=== PATIENT | female | born 1955 | race Caucasian/White ===

== ENCOUNTER 2018-07-24 23:55 | Observation (INO) | payer MEDICAID ==
--- NOTE | 2018-07-25 00:20 | ED PDOC ---
Arrival/HPI - General Chief Complaint: Syncope Time Seen by Provider: 07/24/18 23:56 Historian: Patient, Spouse - History of Present Illness Narrative History of Present Illness (Text): 07/25/18 00:13 63 year old female, whose past medical history includes Hypertension, Diabetes, and Hypercholesterolemia, presents to the emergency department s/p syncopal episode. Patient reports she went to the kitchen after having a bowel movement where her said she found her on the floor. Patient reports she does not recall what happened. The patient reports headache, but denies any fever, chills, chest pain, shortness of breath, abdominal pain, nausea, vomiting, diarrhea, urinary symptoms, back pain, neck pain, dizziness, or any other complaints. PMD: Cal Pfeiffer Time/Duration: Prior to Arrival Symptom Onset: Sudden Symptom Course: Resolved Activities at Onset: Light Context: Home Past Medical History - Provider Review Nursing Documentation Reviewed: Yes - Infectious Disease Hx of Infectious Diseases: None - Reproductive Menopause: Yes - Cardiac Hx Hypertension: Yes - Endocrine/Metabolic Hx Diabetes Mellitus Type 1: Yes - Psychiatric Hx Substance Use: No - Surgical History Hx Cholecystectomy: Yes Hx Orthopedic Surgery: Yes (left shoulder rotator cuff) Other/Comment: Cyst on left breast removed - Anesthesia Hx Anesthesia: Yes Family/Social History - Physician Review Nursing Documentation Reviewed: Yes Family/Social History: No Known Family HX Smoking Status: Never Smoked Hx Alcohol Use: No Hx Substance Use: No Allergies/Home Meds Allergies/Adverse Reactions: Allergies Penicillins Adverse Reaction (Verified 07/25/18 00:14) FEVER Home Medications: Home Meds Medication Instructions Recorded Confirmed Losartan [Cozaar] 100 mg PO DAILY 07/25/18 07/25/18 MetFORMIN [glucOPHAGE] 1,000 mg PO BID 07/25/18 07/25/18 Pravastatin Sodium [Pravachol] 40 mg PO 07/25/18 SITagliptin [Januvia] 100 mg PO DAILY 07/25/18 07/25/18 amLODIPine [Norvasc] 10 mg PO DAILY 07/25/18 07/25/18 Review of Systems - Physician Review All systems were reviewed & negative as marked: Yes - Review of Systems Constitutional: absent: Fevers, Other (Chills) Respiratory: absent: SOB Cardiovascular: Syncope. absent: Chest Pain Gastrointestinal: absent: Abdominal Pain, Diarrhea, Nausea Genitourinary Female: absent: Dysuria, Frequency, Hematuria Musculoskeletal: absent: Back Pain, Neck Pain Neurological: Headache. absent: Dizziness Physical Exam Vital Signs Reviewed: Yes Vital Signs Temp Pulse Resp BP Pulse Ox 07/25/18 00:08 98.3 F 62 18 115/65 97 Temperature: Afebrile Blood Pressure: Normal Pulse: Regular Respiratory Rate: Normal Appearance: Positive for: Well-Appearing, Non-Toxic, Comfortable Pain Distress: None Mental Status: Positive for: Alert and Oriented X 3 - Systems Exam Head: Present: Atraumatic, Normocephalic Pupils: Present: PERRL Extroacular Muscles: Present: EOMI Conjunctiva: Present: Normal Mouth: Present: Moist Mucous Membranes Neck: Present: Normal Range of Motion Respiratory/Chest: Present: Clear to Auscultation, Good Air Exchange. No: Respiratory Distress, Accessory Muscle Use Cardiovascular: Present: Regular Rate and Rhythm, Normal S1, S2. No: Murmurs Abdomen: No: Tenderness, Distention, Peritoneal Signs Back: Present: Normal Inspection Upper Extremity: Present: Normal Inspection. No: Cyanosis, Edema Lower Extremity: Present: Normal Inspection. No: Edema Neurological: Present: GCS=15, CN II-XII Intact, Speech Normal Skin: Present: Warm, Dry, Normal Color. No: Rashes Psychiatric: Present: Alert, Oriented x 3, Normal Insight, Normal Concentration Medical Decision Making ED Course and Treatment: 07/25/18 00:14 Impression: 63 year old female presents s/p syncopal episode after having a bowel movement. Patient also reports headache earlier. Plan: -- CT head -- EKG -- Labs -- CXR -- IV Fluids -- Reassess and disposition Progress Notes: 07/25/18 00:02 EKG shows NSR at 62 BPM. Normal EKG. Interpreted by me 07/25/18 02:03 Labs reviewed. D-Dimer elevated. Ordered CT Angio Chest PE Protocol. CT SCAN OF THE BRAIN WITHOUT IV CONTRAST Electronically signed on Jul 25, 2018 2:50:47 AM EST by: Helga Castro M.D IMPRESSION: Normal unenhanced CT scan of the brain. 07/25/18 02:15 CXR Impression: As read by KIAH sosa. CTA OF THE CHEST WITH IV CONTRAST Electronically signed on Jul 25, 2018 4:07:30 AM EST by: Helga Castro M.D IMPRESSION: No demonstrated pulmonary embolism or arterial dissection. 07/25/18 04:38 Case discussed with biomedical engineering technologist and Dr. Alejandra who is aware and agrees with plan. Accepts patient into hospitalist service. - Lab Interpretations I have reviewed the lab results: Yes - EKG Interpretation Interpreted by ED Physician: Yes Type: 12 lead EKG - Scribe Statement The provider has reviewed the documentation as recorded by the Eusebio Joy Provider Scribe Attestation: All medical record entries made by the Eusebio were at my direction and personally dictated by me. I have reviewed the chart and agree that the record accurately reflects my personal performance of the history, physical exam, medic al decision making, and the department course for this patient. I have also personally directed, reviewed, and agree with the discharge instructions and disposition. Disposition/Present on Arrival - Present on Arrival Any Indicators Present on Arrival: No History of DVT/PE: No History of Uncontrolled Diabetes: Yes Urinary Catheter: No History of Decub. Ulcer: No History Surgical Site Infection Following: None - Disposition Have Diagnosis and Disposition been Completed?: Yes Diagnosis: Syncope Disposition: HOSPITALIZED Disposition Time: 04:25 Condition: FAIR
[2018-07-25] MEDS: Sodium Chloride 0.9% 1,000 ML IV SCH ×2 (00:43→20:26)
[2018-07-25 00:46] LABS: BASO # 0.01 K/mm3 (0.0-2.0); BASO % 0.1 % (0.0-3.0); EOS # 0.3 (0.0-0.7); EOS % 2.7 % (1.5-5.0); GRAN # 6.08 (1.4-6.5); GRAN % 57.1 % (50.0-68.0); LYMPH # 3.5 (1.2-3.4); LYMPH % 32.6 % (22.0-35.0); MEAN CELL VOLUME 87.4 fl (80.0-105.0); MEAN CORPUSCULAR HEMOGLOBIN 29.1 pg (25.0-35.0); MEAN CORPUSCULAR HGB CONC 33.3 g/dl (31.0-37.0); MEAN PLATELET VOLUME 9.5 fl (7.0-11.0); MONO # 0.8 (0.1-0.6); MONO % 7.5 % (1.0-6.0); RBC 4.12 10^6/uL (3.5-6.1); RED CELL DISTRIBUTION WIDTH 13.2 % (11.5-14.5); WHITE BLOOD COUNT 10.7 10^3/uL (4.5-11.0)
[2018-07-25 02:11] LABS: BLOOD UREA NITROGEN 13 mg/dL (7-21); GFR NON-AFRICAN AMERICAN > 60
[2018-07-25 02:12] LABS: ALB/GLOB RATIO 1.4 (1.1-1.8); ALBUMIN 3.9 g/dL (3.0-4.8); ALT/SGPT 18 U/L (7-56); AST/SGOT 24 U/L (14-36); CALCIUM 9.4 mg/dL (8.4-10.5); TROPONIN I < 0.01 ng/mL
[2018-07-25] MEDS ORDERED: Iodixanol 320 MG/ML 100 ML BOTTLE IV ONE (02:31)
--- NOTE | 2018-07-25 05:23 | CP.PCM.HP ---
<Srinivasa Orantes - Last Filed: 07/25/18 06:06> History of Present Illness - History of Present Illness History of Present Illness: Srinivasa Orantes DO, PGY-1 Hospitalist Admission History and Physical for Dr. Alejandra CC: syncope HPI: Mrs. Washington is a 63 year old female with PMH of HTN, DM2, and HLD who presents to ED following a syncopal episode yesterday evening about 10 hours ago. She states that she was sitting on the toilet in the bathroom when she began to feel light-headed and felt very sweaty. The next thing she remembers is waking up on the floor. She is unsure exactly how long she was down as her was asleep at the time. She called out to her who came and found her on the floor. EMS was subsequently called. She admits to feeling similar episodes of dizziness/light-headedness in the past with associated diaphoresis but that she has not passed out before like last night. She does not recall whether these episodes are associated with prolonged standing, emotional distress, or other inciting factors. She states that she has felt light-headed in the past while sitting and while standing but lying down helps to relieve the feelings. Currently, she states she feels better and denies PARR, blurred vision, dizziness, fever/chills, CP, SOB, cough, palpitations, leg/arm weakness, seizure, or peripheral numbness/tingling. PMD: Cal Pfeiffer Past Medical Hx: HTN, DM2, HLD Past Surgical Hx: R shoulder rotator cuff repair, cholecystectomy, L ovarian cyst removal, R breast cyst removal Allergies: PCN Home medications: Losartan 100 mg daily, norvasc 10 daily, metformin 1000 BID, Januvia 100 daily, pravastatin (unknown dose, need to call pharmacy in AM to confirm dosage) Family Hx: Mother and father both had HTN and DM2 Social Hx: denies tobacco, alcohol, drug use. 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 Pharmacy: [facility] [address] [place] [id number] Present on Admission - Present on Admission Any Indicators Present on Admission: No History of DVT/PE: No History of Uncontrolled Diabetes: No Urinary Catheter: No Decubitus Ulcer Present: No Review of Systems - Constitutional Constitutional: absent: Chills, Fever - EENT Eyes: absent: Blurred Vision, Dry Eye - Cardiovascular Cardiovascular: Diaphoresis. absent: Chest Pain, Chest Pain with Activity, Claudication, Dyspnea, Palpitations, Rapid Heart Rate - Respiratory Respiratory: absent: Cough, Dyspnea - Gastrointestinal Gastrointestinal: absent: Abdominal Pain, Nausea, Vomiting - Genitourinary Genitourinary: absent: Change in Urinary Stream, Difficulty Urinating Past Patient History - Infectious Disease Hx of Infectious Diseases: None - Past Social History Smoking Status: Never Smoked - CARDIAC Hx Hypertension: Yes - ENDOCRINE/METABOLIC Hx Diabetes Mellitus Type 1: Yes - PSYCHIATRIC Hx Substance Use: No - SURGICAL HISTORY Hx Cholecystectomy: Yes Hx Orthopedic Surgery: Yes (left shoulder rotator cuff) Other/Comment: Cyst on left breast removed - ANESTHESIA Hx Anesthesia: Yes Meds Allergies/Adverse Reactions: Allergies Allergy/AdvReac Type Severity Reaction Status Date / Time Penicillins AdvReac FEVER Verified 07/25/18 00:14 Physical Exam - Constitutional Appears: Non-toxic, No Acute Distress - Head Exam Head Exam: ATRAUMATIC, NORMOCEPHALIC - Eye Exam Eye Exam: EOMI, Normal appearance, PERRL - ENT Exam ENT Exam: Mucous Membranes Moist - Neck Exam Neck exam: Positive for: Full Rom, Normal Inspection - Respiratory Exam Respiratory Exam: Clear to Auscultation Bilateral, NORMAL BREATHING PATTERN. absent: Accessory Muscle Use, Rales, Rhonchi, Wheezes, Respiratory Distress - Cardiovascular Exam Cardiovascular Exam: REGULAR RHYTHM, RRR, +S1, +S2. absent: Diastolic murmur, Gallop, Rubs, Systolic Murmur - GI/Abdominal Exam GI & Abdominal Exam: Normal Bowel Sounds, Soft. absent: Guarding, Rebound, Tenderness - Extremities Exam Extremities exam: Positive for: normal inspection, pedal pulses present. Negative for: pedal edema - Back Exam Back exam: NORMAL INSPECTION. absent: paraspinal tenderness - Neurological Exam Neurological exam: Alert, Oriented x3 - Psychiatric Exam Psychiatric exam: Normal Affect, Normal Mood - Skin Skin Exam: Dry, Intact, Warm Results - Vital Signs Recent Vital Signs: Last Vital Signs Temp 98.3 F 07/25/18 00:08 Pulse 72 07/25/18 01:44 Resp 18 07/25/18 01:44 BP 126/68 07/25/18 01:44 Pulse Ox 96 07/25/18 01:44 - Labs Result Diagrams: 07/25/18 00:25 07/25/18 01:30 Labs: Laboratory Results - last 24 hr 07/25/18 07/25/18 07/25/18 00:25 01:30 01:30 WBC 10.7 RBC 4.12 Hgb 12.0 Hct 36.0 MCV 87.4 MCH 29.1 MCHC 33.3 RDW 13.2 Plt Count 313 MPV 9.5 Gran % 57.1 Lymph % (Auto) 32.6 [place] % (Auto) 7.5 H Eos % (Auto) 2.7 Baso % (Auto) 0.1 Gran # 6.08 Lymph # (Auto) 3.5 H [place] # (Auto) 0.8 H Eos # (Auto) 0.3 Baso # (Auto) 0.01 D-Dimer, Quantitative 323 H Sodium 138 Potassium 3.6 Chloride 103 Carbon Dioxide 26 Anion Gap 13 BUN 13 Creatinine 0.6 L Est GFR ( Amer) > 60 Est GFR (Non-Af Amer) > 60 Random Glucose 135 H Calcium 9.4 Total Bilirubin 0.3 AST 24 ALT 18 Alkaline Phosphatase 46 Troponin I < 0.01 Total Protein 6.7 Albumin 3.9 Globulin 2.8 Albumin/Globulin Ratio 1.4 Assessment & Plan - Assessment and Plan (Free Text) Assessment: 63 yo F with PMH of HTN, DM2, HLD admitted for syncope. Plan: 1. Syncope Likely 2/2 vasovagal syncope vs cardiogenic Has had pre-syncopal sx's in the past Head CT negative for acute pathology, chest CT negative for PE Troponin negative Will get TSH, lipid panel, A1c Orthostatic VS, Carotid US, TTE ordered Neuro check q4h for 24 hrs Monitor electrolytes closely, replete as needed Cardiology, neurology consulted, recs appreciated 2. Hx HTN Continue home losartan, norvasc Hold if SBP < 100 or DBP < 60 3. Hx HLD Continue home pravastatin Patient cannot recall dose Call pharmacy in AM to confirm dose F/u lipid panel results 4. Hx DM2 ISS medium with point of care fingerstick glucose ACHS while in hospital Hold home metformin, januvia while admitted F/u A1c DVT/GI PPX: Lovenox, protonix Full Code HHD Monitor on telemetry Case and plan reviewed and discussed with my attending Dr. Ny Orantes, DO IM Resident PGY-1 <Enedina Alejandra - Last Filed: 07/25/18 06:10> Results - Vital Signs Recent Vital Signs: Last Vital Signs Temp 98.3 F 07/25/18 00:08 Pulse 72 07/25/18 01:44 Resp 18 07/25/18 01:44 BP 126/68 07/25/18 01:44 Pulse Ox 96 07/25/18 01:44 - Labs Result Diagrams: 07/25/18 00:25 07/25/18 01:30 Labs: Laboratory Results - last 24 hr 07/25/18 07/25/18 07/25/18 00:25 01:30 01:30 WBC 10.7 RBC 4.12 Hgb 12.0 Hct 36.0 MCV 87.4 MCH 29.1 MCHC 33.3 RDW 13.2 Plt Count 313 MPV 9.5 Gran % 57.1 Lymph % (Auto) 32.6 [place] % (Auto) 7.5 H Eos % (Auto) 2.7 Baso % (Auto) 0.1 Gran # 6.08 Lymph # (Auto) 3.5 H [place] # (Auto) 0.8 H Eos # (Auto) 0.3 Baso # (Auto) 0.01 D-Dimer, Quantitative 323 H Sodium 138 Potassium 3.6 Chloride 103 Carbon Dioxide 26 Anion Gap 13 BUN 13 Creatinine 0.6 L Est GFR ( Amer) > 60 Est GFR (Non-Af Amer) > 60 Random Glucose 135 H Calcium 9.4 Total Bilirubin 0.3 AST 24 ALT 18 Alkaline Phosphatase 46 Troponin I < 0.01 Total Protein 6.7 Albumin 3.9 Globulin 2.8 Albumin/Globulin Ratio 1.4 Attending/Attestation - Attestation I have personally seen and examined this patient.: Yes I have fully participated in the care of the patient.: Yes I have reviewed all pertinent clinical information: Yes Notes (Text): 07/25/18 06:08 Pt seen with the resident by the bedside. Case discussed in detail. Agree with documentation,assessment and plan of treatment.
[2018-07-25] MEDS: Pantoprazole 40 mg EC Tab PO SCH (06:08)
[2018-07-25 07:17] VITALS: BMI 31.7
[2018-07-25 07:23] VITALS: O2SAT 100
[2018-07-25 07:53] LABS: BASO # 0.02 K/mm3 (0.0-2.0); BASO % 0.2 % (0.0-3.0); EOS # 0.2 (0.0-0.7); EOS % 2.4 % (1.5-5.0); GRAN # 5.94 (1.4-6.5); GRAN % 63.7 % (50.0-68.0); HEMOGLOBIN 11.3 g/dL (12.0-16.0); LYMPH # 2.5 (1.2-3.4); LYMPH % 26.7 % (22.0-35.0); MEAN CELL VOLUME 86.9 fl (80.0-105.0); MEAN CORPUSCULAR HGB CONC 33.3 g/dl (31.0-37.0); MEAN PLATELET VOLUME 9.2 fl (7.0-11.0); MONO # 0.7 (0.1-0.6); RBC 3.9 10^6/uL (3.5-6.1); RED CELL DISTRIBUTION WIDTH 13.3 % (11.5-14.5); WHITE BLOOD COUNT 9.3 10^3/uL (4.5-11.0)
[2018-07-25 08:11] LABS: ALB/GLOB RATIO 1.4 (1.1-1.8); ALBUMIN 3.7 g/dL (3.0-4.8); ALT/SGPT 29 U/L (7-56); AST/SGOT 21 U/L (14-36); BLOOD UREA NITROGEN 11 mg/dL (7-21); CALCIUM 9.2 mg/dL (8.4-10.5); GFR NON-AFRICAN AMERICAN > 60; HDL CHOLESTEROL 52 mg/dL (29-60)
[2018-07-25 08:18] LABS: LDL CHOLESTEROL 77 mg/dL (0-129)
--- NOTE | 2018-07-25 09:04 | RAD ---
Date of service: 07/25/2018 PROCEDURE: CHEST RADIOGRAPH, 1 VIEW HISTORY: syncope COMPARISON: None available. FINDINGS: LUNGS: Clear. PLEURA: No pneumothorax or pleural fluid seen. CARDIOVASCULAR: Mild cardiomegaly OSSEOUS STRUCTURES: No significant abnormalities. VISUALIZED UPPER ABDOMEN: Normal. OTHER FINDINGS: None. IMPRESSION: No active disease.
[2018-07-25] MEDS: Enoxaparin 40 mg Syringe SC SCH (09:19)
[2018-07-25] MEDS: Insulin Reg-MEDIUM-Coverage SC SCH ×3 (09:20→21:57)
--- NOTE | 2018-07-25 09:26 | CT ---
Date of service: 07/25/2018 PROCEDURE: CT HEAD WITHOUT CONTRAST. HISTORY: syncope COMPARISON: None available. TECHNIQUE: Axial computed tomography images were obtained through the head/brain without intravenous contrast. Radiation dose: Total exam DLP = 796.57 mGy-cm. This CT exam was performed using one or more of the following dose reduction techniques: Automated exposure control, adjustment of the mA and/or kV according to patient size, and/or use of iterative reconstruction technique. FINDINGS: HEMORRHAGE: No intracranial hemorrhage. BRAIN: No mass effect or edema. No atrophy or chronic microvascular ischemic changes. VENTRICLES: Unremarkable. No hydrocephalus. CALVARIUM: Unremarkable. PARANASAL SINUSES: Unremarkable as visualized. No significant inflammatory changes. MASTOID AIR CELLS: Unremarkable as visualized. No inflammatory changes. OTHER FINDINGS: The report concurs with the preliminary [facility] report IMPRESSION: No acute intracranial findings
--- NOTE | 2018-07-25 09:44 | CT ---
Date of service: 07/25/2018 PROCEDURE: CT Chest with contrast (Pulmonary Angiogram) HISTORY: r/o pe COMPARISON: None available. TECHNIQUE: Axial computed tomography images were obtained of the chest in the pulmonary arterial phase of enhancement. Coronal and sagittal reformatted images were created and reviewed. Intravenous contrast dose: 100 cc of Visipaque Radiation dose: Total exam DLP = 508.69 mGy-cm. This CT exam was performed using one or more of the following dose reduction techniques: Automated exposure control, adjustment of the mA and/or kV according to patient size, and/or use of iterative reconstruction technique. FINDINGS: PULMONARY ARTERIES: Unremarkable. No pulmonary embolism. AORTA: The ascending aorta measures 4 cm in diameter. Minimal aortic calcification. Moderate amount of coronary artery calcification LUNGS: Unremarkable. No nodule, mass or pulmonary consolidation. PLEURAL SPACES: Unremarkable. No effusion or pneumothorax. HEART: Unremarkable. No cardiomegaly. No significant pericardial effusion. LYMPH NODES: No lymphadenopathy. BONES, CHEST WALL: Unremarkable. No fracture or destructive lesion OTHER FINDINGS: The report concurs with the preliminary [facility] report IMPRESSION: Unremarkable CT pulmonary angiogram. No pulmonary embolus.
--- NOTE | 2018-07-25 10:07 | CARD ---
APPROVED REPORT Date of service: 07/25/2018 EKG Measurement Heart [id number] <Conclusion> Sinus rhythm with 1st degree AV block Possible Inferior infarct, age undetermined Abnormal ECG
--- NOTE | 2018-07-25 10:09 | CARD ---
APPROVED REPORT Date of service: 07/25/2018 EKG Measurement Heart [id number] <Conclusion> Normal sinus rhythm Normal ECG
[2018-07-25] MEDS ORDERED: Magnesium Sulfate 1 gm in D5W 1 GM/100 ML BAG IVPB ONE (10:13)
--- NOTE | 2018-07-25 12:39 | US ---
PROCEDURE: Bilateral carotid artery duplex ultrasound HISTORY: Carotid stenosis syncope PHYSICIAN(S): Junior Farmer MD. TECHNIQUE: Duplex sonography and color-flow Doppler were used to evaluate the carotid bifurcations and limited segments of the vertebral arteries bilaterally. The exam is somewhat limited by tortuous vessels FINDINGS: There is mild smooth heterogeneous plaque noted at the carotid bifurcations bilaterally. The peak systolic velocity in the proximal right internal carotid artery is 87 cm/sec. This corresponds to a 20 to 39% proximal right ICA stenosis. Normal systolic velocities are noted in the proximal right external carotid artery. There is antegrade flow in the right vertebral artery. The peak systolic velocity in the proximal left internal carotid artery is 72 cm/sec. This corresponds to a 20 to 39% proximal left ICA stenosis. Normal systolic velocities are noted in the proximal left external carotid artery. There is antegrade flow in the left vertebral artery. IMPRESSION: 1. Bilateral 20-39% proximal ICA stenoses. 2. Antegrade flow in both vertebral arteries.
--- NOTE | 2018-07-25 14:33 | CP.PCM.CON ---
History of Present Illness - History of Present Illness History of Present Illness: Neurology consult dictated. Miss Washington is a 63 yr old woman who had a syncopal spell after a bowel movement last night, preceded by diaphoresis. On exam: Normal. AAox3. PERRL. Cn 2-12 normal. EOMI. VFF. Speech fluent. No deficits. Motor:strength: 5/5 ul and ll bl. Sensory: Intact to ft, pin, position, and vibration. Rhomberg negative. Cerebellar : f/n shows no dysmetria Gait: normal. Walks tandem well. +2 dtr ul and ll bl. Toes downgoing. No clonus. Past Patient History - Infectious Disease Hx of Infectious Diseases: None - Past Social History Smoking Status: Never Smoked - CARDIAC Hx Hypercholesterolemia: Yes Hx Hypertension: Yes - PULMONARY Hx Respiratory Disorders: No Hx Asthma: No Hx Bronchitis: No Hx Chronic Obstructive Pulmonary Disease (COPD): No Hx Emphysema: No Hx Pneumonia: No Hx Respiratory Aspiration: No Hx Respiratory Tract Infection: No Hx Sleep Apnea: No Hx Tuberculosis: No - NEUROLOGICAL Hx Neurological Disorder: No Hx Alzheimer's Disease: No HX Cerebrovascular Accident: No Hx Dementia: No Hx Dizziness: No Hx Meningitis: No Hx Migraine: No Hx Parkinson's Disease: No Hx Seizures: No Hx Transient Ischemic Attacks (TIA): No - HEENT Hx HEENT Problems: No Hx Blind: No Hx Cataracts: No Hx Deafness: No Hx Difficulty Chewing: No Hx Epistaxis: No Hx Glaucoma: No Hx Macular Degeneration: No - RENAL Hx Chronic Kidney Disease: No Hx Dialysis: No Hx Kidney Stones: No Hx Neurogenic Bladder: No Hx Pyelonephritis: No Hx Renal (Kidney) Cancer: No Hx Renal Failure: No - ENDOCRINE/METABOLIC Hx Diabetes Mellitus Type 2: Yes - HEMATOLOGICAL/ONCOLOGICAL Hx Blood Disorders: No Hx AIDS: No Hx Anemia: No Hx Cancer: No Hx Chemotherapy: No Hx Cirrhosis: No Hx Hemophilia: No Hx Hepatitis A: No Hx Hepatitis B: No Hx Hepatitis C: No Hx Human Immunodeficiency Virus (HIV): No Hx Metastesis: No Hx Shingles: No Hx Sickle Cell Disease: No Hx Unexplained Bleeding: No - INTEGUMENTARY Hx Dermatological Problems: No Hx Basil Cell: No Hx Eczema: No Hx Melanoma: No Hx Psoriasis: No Hx Squamous Cell: No - MUSCULOSKELETAL/RHEUMATOLOGICAL Hx Musculoskeletal Disorders: No Hx Arthritis: No Hx Back Pain: No Hx Degenerative Joint Disease: No Hx Falls: No Hx Fractures: No Hx Gout: No Hx Herniated Disk: No Hx Myasthenia Gravis: No Hx Osteoarthritis: No Hx Osteomyelitis: No Hx Osteoporosis: No Hx Rhabdomyolysis: No Hx Spinal Stenosis: No Hx Unsteady Gait: No - GASTROINTESTINAL Hx Gastrointestinal Disorders: Yes Hx Colostomy: No Hx Crohn's Disease: No Hx Diverticulitis: No Hx Gall Bladder Disease: Yes Hx Gastroesophageal Reflux: No Hx Ileostomy: No Hx Liver Failure: No Hx Pancreatitis: No HX Swallowing Problems: No Hx Ulcer: No - GENITOURINARY/GYNECOLOGICAL Hx Genitourinary Disorders: No Hx Hematuria: No Hx Incontinence: No Hx Sexually Transmitted Disorders: No Hx Urinary Tract Infection: No - PSYCHIATRIC Hx Psychophysiologic Disorder: No Hx Anxiety: No Hx Bipolar Disorder: No Hx Depression: No Hx Emotional Abuse: No Hx Hallucinations: No Hx Panic Symptoms: No Hx Paranoia: No Hx Post Traumatic Stress Disorder: No Hx Psychosis: No Hx Physical Abuse: No Hx Schizophrenia: No Hx Sexual Abuse: No - SURGICAL HISTORY Hx Surgeries: Yes (right rotator cuff, left ovarian cyst removed, right breast cyst removed, r) Hx Amputation: No Hx Appendectomy: No Hx Cardiac Catheterization: No Hx Cholecystectomy: Yes Hx Coronary Stent: No Hx Gastric Bypass Surgery: No Hx Hysterectomy: No Hx Joint Replacement: No Hx Kidney Transplant: No Hx Liver Transplant: No Hx Mastectomy: No Hx Musculoskeletal Surgery: No Hx Open Heart Surgery: No Hx Orthopedic Surgery: No Hx Splenectomy: No - ANESTHESIA Hx Anesthesia: Yes Meds Allergies/Adverse Reactions: Allergies Allergy/AdvReac Type Severity Reaction Status Date / Time Penicillins AdvReac FEVER Verified 07/25/18 00:14 - Medications Medications: Current Medications Acetaminophen (Tylenol 325mg Tab) 650 mg PO Q6H PRN PRN Reason: Pain, moderate (4-7) Amlodipine Besylate (Norvasc) 10 mg PO DAILY [facility] Last Admin: 07/25/18 09:20 Dose: 10 mg Enoxaparin Sodium (Lovenox) 40 mg SC DAILY [facility]; Protocol Last Admin: 07/25/18 09:19 Dose: 40 mg Sodium Chloride (Sodium Chloride 0.9%) 1,000 mls @ 80 mls/hr IV .[id number] [facility] Last Admin: 11/07/18 00:43 Dose: 80 mls/hr Insulin Human Regular (Humulin R Med) 0 units SC ACHS [facility]; Protocol Last Admin: 07/25/18 09:20 Dose: Not Given Losartan Potassium (Cozaar) 100 mg PO DAILY [facility] Last Admin: 07/25/18 09:21 Dose: 100 mg Pantoprazole Sodium (Protonix Ec Tab) 40 mg PO 0600 [facility] Last Admin: 07/25/18 06:08 Dose: 40 mg Results - Vital Signs Recent Vital Signs: Last Vital Signs Temp 97.1 F L 07/25/18 12:00 Pulse 71 07/25/18 12:00 Resp 21 07/25/18 12:00 BP 145/72 07/25/18 12:00 Pulse Ox 100 07/25/18 05:15 - Labs Result Diagrams: 07/25/18 07:30 07/25/18 07:30 Labs: Laboratory Results - last 24 hr 07/25/18 07/25/18 07/25/18 00:25 01:30 01:30 WBC 10.7 RBC 4.12 Hgb 12.0 Hct 36.0 MCV 87.4 MCH 29.1 MCHC 33.3 RDW 13.2 Plt Count 313 MPV 9.5 Gran % 57.1 Lymph % (Auto) 32.6 Todd % (Auto) 7.5 H Eos % (Auto) 2.7 Baso % (Auto) 0.1 Gran # 6.08 Lymph # (Auto) 3.5 H Todd # (Auto) 0.8 H Eos # (Auto) 0.3 Baso # (Auto) 0.01 D-Dimer, Quantitative 323 H Sodium 138 Potassium 3.6 Chloride 103 Carbon Dioxide 26 Anion Gap 13 BUN 13 Creatinine 0.6 L Est GFR ( Amer) > 60 Est GFR (Non-Af Amer) > 60 POC Glucose (mg/dL) Random Glucose 135 H Hemoglobin A1c Calcium 9.4 Phosphorus Magnesium Total Bilirubin 0.3 AST 24 ALT 18 Alkaline Phosphatase 46 Troponin I < 0.01 Total Protein 6.7 Albumin 3.9 Globulin 2.8 Albumin/Globulin Ratio 1.4 Triglycerides Cholesterol LDL Cholesterol Direct HDL Cholesterol 25-OH Vitamin D Total TSH 3rd Generation 07/25/18 07/25/18 07/25/18 07:30 07:30 07:30 WBC 9.3 RBC 3.90 Hgb 11.3 L Hct 33.9 L MCV 86.9 MCH 29.0 MCHC 33.3 RDW 13.3 Plt Count 285 MPV 9.2 Gran % 63.7 Lymph % (Auto) 26.7 Todd % (Auto) 7.0 H Eos % (Auto) 2.4 Baso % (Auto) 0.2 Gran # 5.94 Lymph # (Auto) 2.5 Todd # (Auto) 0.7 H Eos # (Auto) 0.2 Baso # (Auto) 0.02 D-Dimer, Quantitative Sodium 136 Potassium 3.9 Chloride 103 Carbon Dioxide 26 Anion Gap 12 BUN 11 Creatinine 0.5 L Est GFR ( Amer) > 60 Est GFR (Non-Af Amer) > 60 POC Glucose (mg/dL) Random Glucose 121 H Hemoglobin A1c 6.1 Calcium 9.2 Phosphorus 4.1 Magnesium 1.6 L Total Bilirubin 0.4 AST 21 ALT 29 Alkaline Phosphatase 47 Troponin I Total Protein 6.4 Albumin 3.7 Globulin 2.7 Albumin/Globulin Ratio 1.4 Triglycerides 237 H Cholesterol 154 LDL Cholesterol Direct 77 HDL Cholesterol 52 25-OH Vitamin D Total TSH 3rd Generation 07/25/18 07/25/18 07/25/18 07:30 07:30 08:14 WBC RBC Hgb Hct MCV MCH MCHC RDW Plt Count MPV Gran % Lymph % (Auto) Todd % (Auto) Eos % (Auto) Baso % (Auto) Gran # Lymph # (Auto) Todd # (Auto) Eos # (Auto) Baso # (Auto) D-Dimer, Quantitative Sodium Potassium Chloride Carbon Dioxide Anion Gap BUN Creatinine Est GFR ( Amer) Est GFR (Non-Af Amer) POC Glucose (mg/dL) 120 H Random Glucose Hemoglobin A1c Calcium Phosphorus Magnesium Total Bilirubin AST ALT Alkaline Phosphatase Troponin I Total Protein Albumin Globulin Albumin/Globulin Ratio Triglycerides Cholesterol LDL Cholesterol Direct HDL Cholesterol 25-OH Vitamin D Total 34.8 TSH 3rd Generation 1.54 07/25/18 11:22 WBC RBC Hgb Hct MCV MCH MCHC RDW Plt Count MPV Gran % Lymph % (Auto) Todd % (Auto) Eos % (Auto) Baso % (Auto) Gran # Lymph # (Auto) Todd # (Auto) Eos # (Auto) Baso # (Auto) D-Dimer, Quantitative Sodium Potassium Chloride Carbon Dioxide Anion Gap BUN Creatinine Est GFR ( Amer) Est GFR (Non-Af Amer) POC Glucose (mg/dL) 113 H Random Glucose Hemoglobin A1c Calcium Phosphorus Magnesium Total Bilirubin AST ALT Alkaline Phosphatase Troponin I Total Protein Albumin Globulin Albumin/Globulin Ratio Triglycerides Cholesterol LDL Cholesterol Direct HDL Cholesterol 25-OH Vitamin D Total TSH 3rd Generation Assessment & Plan - Assessment and Plan (Free Text) Assessment: 63 yr old woman with syncope with normal neurological exam who will need ECHo, Dopplers and vestibular therapy. I believe she also has vertigo. Plan; 1. ENT for a VNG 2. ECHO pending result 3. dopplers: not a candidate for endarterectomy 4. continue aspirin. Dr. Ledesma Neurology
--- NOTE | 2018-07-25 19:08 | CARD ---
APPROVED REPORT Date of service: 07/25/2018 EXAM: Two-dimensional and M-mode echocardiogram with Doppler and color Doppler. INDICATION Syncope 2D DIMENSIONS Left Atrium (2D)3.7 (1.6-4.0cm)IVSd1.3 (0.7-1.1cm) LVDd4.3 (3.9-5.9cm)PWd1.1 (0.7-1.1cm) LVDs2.7 (2.5-4.0cm)FS (%) 35.9 % LVEF (%)65.8 (>50%) M-Mode DIMENSIONS Aortic Root2.60 (2.2-3.7cm)Aortic Cusp Exc.1.90 (1.5-2.0cm) Aortic Valve AoV Peak Afrwlpsl007.0cm/Penny Peak GR.9mmHg Mitral Valve MV E Aqunbmoc58.4cm/sMV A Ojqhnayy93.2cm/sE/A ratio0.9 TDI E/Lateral E'0.0E/Medial E'0.0 Tricuspid Valve TR Peak [id number]/sRAP [id number] Peak Gr.5mmHg [id number] LEFT VENTRICLE The left ventricle is normal size. There is borderline Asymmetric left ventricular hypertrophy. The left ventricular function is normal.EF-65% There is normal LV segmental wall motion. Transmitral Doppler flow pattern is Grade III-reversible restrictive diastolic dysfunction. No left ventricle thrombus noted on this study. There is no ventricular septal defect visualized. There is no left ventricular aneurysm. There is no mass noted in the left ventricle. RIGHT VENTRICLE The right ventricle is normal size. There is normal right ventricular wall thickness. The right ventricular systolic function is normal. ATRIA The left atrium size is normal. The right atrium size is normal. The interatrial septum is intact with no evidence for an atrial septal defect. AORTIC VALVE The aortic valve is thickened but opens well. There is trace aortic regurgitation. There is no aortic valvular stenosis. There is no aortic valvular vegetation. MITRAL VALVE The mitral valve is thickened but opens well. Mitral regurgitation is mild. There is no mitral valve stenosis. There is no evidence of mitral valve prolapse. TRICUSPID VALVE The tricuspid valve leaflets are thickened , but open well. There is trace tricuspid regurgitation.rvsp-15 MMOF hG. There is no tricuspid valve stenosis. There is no tricuspid valve prolapse or vegetation. PULMONIC VALVE The pulmonary valve is normal in structure. There is trace pulmonic valvular regurgitation. There is no pulmonic valvular stenosis. GREAT VESSELS The aortic root is normal in size. The ascending aorta is normal in size. The pulmonary artery is normal. The IVC is normal in size and collapses >50% with inspiration. PERICARDIAL EFFUSION There is no pleural effusion. There is no pericardial effusion. <Conclusion> The left ventricle is normal size. There is borderline Asymmetric left ventricular hypertrophy. The left ventricular function is normal.EF-65% There is trace aortic regurgitation. Mitral regurgitation is mild. There is trace tricuspid regurgitation.rvsp-15 MMOF hG. The IVC is normal in size and collapses >50% with inspiration. There is no pericardial effusion.
--- NOTE | 2018-07-25 23:51 | CON ---
DATE: 07/25/2018 CARDIOLOGY CONSULTATION HISTORY OF PRESENT ILLNESS: The patient is a 63-year-old woman who presents with a syncopal episode after going to the bathroom. This is the first episode that ever happened. PAST MEDICAL HISTORY: The patient's past medical history is notable for diabetes mellitus, hypercholesterolemia and hypertension for which she is on multiple medications. She denies angina, denies shortness of breath. She has no previous cardiac history. Her doctors in will prescribe her medications. SOCIAL HISTORY: Denies smoking. REVIEW OF SYSTEMS: A 14-point review of systems is reviewed in detail. No cardiac symptomatology is noted. PHYSICAL EXAMINATION: VITAL SIGNS: Blood pressure is 130/82, the heart rate is in the 70s. NECK: Negative JVD. LUNGS: Without rales. HEART: Reveals S1, S2. EXTREMITIES: Without edema. LABORATORY DATA: The glucose is 121, BUN and creatinine unremarkable. Troponin is negative. Hemoglobin is 11.3. Carotid ultrasound reveals no critical lesions. Preliminary echo reveals normal LV function with no LV outflow obstruction. EKG is unremarkable. IMPRESSION: 1. No evidence for cardiac cause of her syncope. 2. Diabetes mellitus. 3. Hypercholesterolemia. 4. Hypertension. Given these findings, the patient's syncope may be post micturition syncope. We will need neurologic evaluation. We will monitor on telemetry for 24 hours. Junior Levy MD
[2018-07-26] MEDS: Pantoprazole 40 mg EC Tab PO SCH (06:02)
[2018-07-26 06:56] LABS: BASO # 0.01 K/mm3 (0.0-2.0); BASO % 0.2 % (0.0-3.0); EOS # 0.3 (0.0-0.7); EOS % 5.2 % (1.5-5.0); GRAN # 2.45 (1.4-6.5); GRAN % 39.9 % (50.0-68.0); HEMOGLOBIN 11.5 g/dL (12.0-16.0); LYMPH # 2.8 (1.2-3.4); LYMPH % 46.2 % (22.0-35.0); MEAN CELL VOLUME 87.5 fl (80.0-105.0); MEAN CORPUSCULAR HEMOGLOBIN 28.8 pg (25.0-35.0); MEAN CORPUSCULAR HGB CONC 32.9 g/dl (31.0-37.0); MEAN PLATELET VOLUME 9.4 fl (7.0-11.0); MONO # 0.5 (0.1-0.6); MONO % 8.5 % (1.0-6.0); RED CELL DISTRIBUTION WIDTH 13.4 % (11.5-14.5); WHITE BLOOD COUNT 6.1 10^3/uL (4.5-11.0)
[2018-07-26 07:00] LABS: ALB/GLOB RATIO 1.4 (1.1-1.8); ALBUMIN 3.7 g/dL (3.0-4.8); ALT/SGPT 25 U/L (7-56); AST/SGOT 22 U/L (14-36); BLOOD UREA NITROGEN 10 mg/dL (7-21); CALCIUM 9.2 mg/dL (8.4-10.5); GFR NON-AFRICAN AMERICAN > 60
--- NOTE | 2018-07-26 07:30 | CP.PCM.PN ---
Subjective - Date & Time of Evaluation Date of Evaluation: 07/26/18 Time of Evaluation: 07:30 - Subjective Subjective: PGY-1 Medicine Progress Note for Dr. Maldonado Patient seen and examined at bedside this AM. Objective - Vital Signs/Intake and Output Vital Signs (last 24 hours): Temp Pulse Resp BP Pulse Ox 98.7 F 71 21 119/71 100 07/26/18 06:00 07/26/18 06:00 07/25/18 18:00 07/26/18 06:00 07/25/18 05:15 Intake and Output: 07/26/18 07/26/18 06:59 18:59 Intake Total 360 Balance 360 - Medications Medications: Current Medications Acetaminophen (Tylenol 325mg Tab) 650 mg PO Q6H PRN PRN Reason: Pain, moderate (4-7) Last Admin: 07/25/18 21:52 Dose: 650 mg Amlodipine Besylate (Norvasc) 10 mg PO DAILY [facility] Last Admin: 07/25/18 09:20 Dose: 10 mg Enoxaparin Sodium (Lovenox) 40 mg SC DAILY [facility]; Protocol Last Admin: 07/25/18 09:19 Dose: 40 mg Sodium Chloride (Sodium Chloride 0.9%) 1,000 mls @ 80 mls/hr IV .[id number] [facility] Last Admin: 07/25/18 20:26 Dose: 80 mls/hr Insulin Human Regular (Humulin R Med) 0 units SC ACHS [facility]; Protocol Last Admin: 07/25/18 21:57 Dose: Not Given Losartan Potassium (Cozaar) 100 mg PO DAILY [facility] Last Admin: 07/25/18 09:21 Dose: 100 mg Pantoprazole Sodium (Protonix Ec Tab) 40 mg PO 0600 [facility] Last Admin: 07/26/18 06:02 Dose: 40 mg - Labs Labs: 07/26/18 06:00 07/26/18 06:00
--- NOTE | 2018-07-26 07:58 | CP.PCM.PN ---
Subjective - Date & Time of Evaluation Date of Evaluation: 07/26/18 Time of Evaluation: 09:30 - Subjective Subjective: Dev Dobson- Internal Medicine Resident- Progress Note on Behalf of Neurology Team Subjective: Patient seen and examined. No acute events overnight. States lightheadedness has significantly improved since onset. Denies associated weakness and sensory changes in his upper/lower extremities bilaterally. Patient denies tongue biting, confusion, palpitations, auditory/visual changes from baseline, and focal deficits. Further denies fever, chills, chest pain, shortness of breath, nausea, vomiting, diarrhea, constipation, and urinary symptoms. 12 point ROS negative except as indicated in HPI Physical Examination: - Constitutional Appears: Well, Non-toxic, No Acute Distress - Head Exam Head Exam: old surgical incision superior portion of right side of skull, REGISTERED PHLEBOTOMIST PART TIME shunt present on left side - Eye Exam Eye Exam: EOMI, Normal appearance - ENT Exam ENT Exam: Mucous Membranes Moist, Normal Exam, No tongue laceration - Neck Exam Neck exam: Positive for: Full Rom, Normal Inspection - Respiratory Exam Respiratory Exam: Clear to Auscultation Bilateral, NORMAL BREATHING PATTERN. absent: Accessory Muscle Use, Rales, Rhonchi, Wheezes, Respiratory Distress - Cardiovascular Exam Cardiovascular Exam: REGULAR RHYTHM, +S1, +S2 - GI/Abdominal Exam GI & Abdominal Exam: Normal Bowel Sounds, Soft. absent: Distended, Firm, Guarding, Rebound, Rigid, Tenderness - Extremities Exam Extremities exam: Positive for: full ROM, normal capillary refill, normal inspection, pedal pulses present - Neurological Exam Neurological exam: awake, alert, orientated x 3, responds to verbal stimuli, answers questions appropriately, follows commands, moves extremities past midline, muscle strength 5/5 bilateral upper and lower extremities, hand genetic counselor 5/5 bilaterally, sensation is intact to touch throughout, CNII-CNXII intact bilaterally, no dysmetria - Psychiatric Exam Psychiatric exam: Normal Affect, Normal Mood - Skin Skin Exam: Intact, Normal Color, Warm Assessment and Plan: Patient is a 63 year old female with a PMHx of HTN, DM2, HLD who was admitted for evaluation and treatment of syncope. Neurology team was consulted for aforementioned symptom. Vertigo - BPPV vs orthostatic vs vestibular labyrinthitis - 07/25/2018 CT head without contrast- No acute intracranial findings - ECHO 07/25/2018- LVEF 65% , asymmetric left ventricular hypertrophy - recommend ENT consult for Videonystagmography - recommend aspirin 81mg PO daily Patient case discussed with and plan approved by attending physician, Dr. Ledesma Objective - Vital Signs/Intake and Output Vital Signs (last 24 hours): Temp Pulse Resp BP Pulse Ox 98.7 F 71 21 119/71 100 07/26/18 06:00 07/26/18 06:00 07/25/18 18:00 07/26/18 06:00 07/25/18 05:15 Intake and Output: 07/26/18 07/26/18 06:59 18:59 Intake Total 360 Balance 360 - Medications Medications: Current Medications Acetaminophen (Tylenol 325mg Tab) 650 mg PO Q6H PRN PRN Reason: Pain, moderate (4-7) Last Admin: 07/25/18 21:52 Dose: 650 mg Amlodipine Besylate (Norvasc) 10 mg PO DAILY [facility] Last Admin: 07/25/18 09:20 Dose: 10 mg Enoxaparin Sodium (Lovenox) 40 mg SC DAILY [facility]; Protocol Last Admin: 07/25/18 09:19 Dose: 40 mg Sodium Chloride (Sodium Chloride 0.9%) 1,000 mls @ 80 mls/hr IV .[id number] [facility] Last Admin: 07/25/18 20:26 Dose: 80 mls/hr Insulin Human Regular (Humulin R Med) 0 units SC ACHS [facility]; Protocol Last Admin: 07/25/18 21:57 Dose: Not Given Losartan Potassium (Cozaar) 100 mg PO DAILY [facility] Last Admin: 07/25/18 09:21 Dose: 100 mg Pantoprazole Sodium (Protonix Ec Tab) 40 mg PO 0600 [facility] Last Admin: 07/26/18 06:02 Dose: 40 mg - Labs Labs: 07/26/18 06:00 07/26/18 06:00
[2018-07-26] MEDS: Insulin Reg-MEDIUM-Coverage SC SCH ×2 (08:13→12:05)
[2018-07-26] MEDS: Enoxaparin 40 mg Syringe SC SCH (09:26)
[2018-07-26] MEDS: Sodium Chloride 0.9% 1,000 ML IV SCH (09:27)
--- NOTE | 2018-07-26 10:57 | PN ---
DATE: 07/26/2018 CARDIOLOGY FOLLOWUP SUBJECTIVE: The patient is ambulating without symptoms. No recurrent dizziness or syncope noted. PHYSICAL EXAMINATION: VITAL SIGNS: Blood pressure is 119/71, the heart rate is in the 70s. NECK: Negative JVD. LUNGS: Without rales. HEART: Reveals S1, S2. EXTREMITIES: Without edema. LABORATORY: Laboratories were reviewed. Other than a glucose of 112, there are no outstanding issues. Echocardiogram reveals no LV outflow obstruction. IMPRESSION: 1. No cardiac cause of her syncope can be identified. 2. Diabetes mellitus. 3. Mild anemia. PLAN: Given these findings, the patient is doing well. We will discontinue telemetry today. The patient has requested to have a stress test done, which we can do as an outpatient given her cardiac risk factors. Junior Levy MD
[2018-07-26 12:22] VITALS: BP 143/84; PULSE 60; RESP 18; TEMP 98.3
--- NOTE | 2018-07-26 14:56 | CP.PCM.DIS ---
<Roque Perez - Last Filed: 07/26/18 14:48> Provider - Provider Date of Admission: 07/25/18 04:35 Attending physician: Be Maldonado MD Primary care physician: Margarette Mccall MD Time Spent in preparation of Discharge (in minutes): 40 Hospital Course - Lab Results Lab Results: Most Recent Lab Values WBC 6.1 10^3/uL (4.5-11.0) D 07/26/18 06:00 RBC 4.00 10^6/uL (3.5-6.1) 07/26/18 06:00 Hgb 11.5 g/dL (12.0-16.0) L 07/26/18 06:00 Hct 35.0 % (36.0-48.0) L 07/26/18 06:00 MCV 87.5 fl (80.0-105.0) 07/26/18 06:00 MCH 28.8 pg (25.0-35.0) 07/26/18 06:00 MCHC 32.9 g/dl (31.0-37.0) 07/26/18 06:00 RDW 13.4 % (11.5-14.5) 07/26/18 06:00 Plt Count 304 10^3/uL (120.0-450.0) 07/26/18 06:00 MPV 9.4 fl (7.0-11.0) 07/26/18 06:00 Gran % 39.9 % (50.0-68.0) L 07/26/18 06:00 Lymph % (Auto) 46.2 % (22.0-35.0) H 07/26/18 06:00 [place] % (Auto) 8.5 % (1.0-6.0) H 07/26/18 06:00 Eos % (Auto) 5.2 % (1.5-5.0) H 07/26/18 06:00 Baso % (Auto) 0.2 % (0.0-3.0) 07/26/18 06:00 Gran # 2.45 (1.4-6.5) 07/26/18 06:00 Lymph # (Auto) 2.8 (1.2-3.4) 07/26/18 06:00 [place] # (Auto) 0.5 (0.1-0.6) 07/26/18 06:00 Eos # (Auto) 0.3 (0.0-0.7) 07/26/18 06:00 Baso # (Auto) 0.01 K/mm3 (0.0-2.0) 07/26/18 06:00 D-Dimer, Quantitative 323 ng/mlDDU (0-243) H 07/25/18 01:30 Sodium 139 mmol/L (132-148) 07/26/18 06:00 Potassium 3.7 mmol/L (3.6-5.0) 07/26/18 06:00 Chloride 104 mmol/L (98-107) 07/26/18 06:00 Carbon Dioxide 28 mmol/L (21-33) 07/26/18 06:00 Anion Gap 10 (10-20) 07/26/18 06:00 BUN 10 mg/dL (7-21) 07/26/18 06:00 Creatinine 0.5 mg/dl (0.7-1.2) L 07/26/18 06:00 Est GFR ( Amer) > 60 07/26/18 06:00 Est GFR (Non-Af Amer) > 60 07/26/18 06:00 POC Glucose (mg/dL) 116 mg/dL (65-110) H 07/26/18 11:13 Random Glucose 112 mg/dL (70-110) H 07/26/18 06:00 Hemoglobin A1c 6.1 % (4.2-6.5) 07/25/18 07:30 Calcium 9.2 mg/dL (8.4-10.5) 07/26/18 06:00 Phosphorus 4.1 mg/dL (2.5-4.5) 07/25/18 07:30 Magnesium 1.6 mg/dL (1.7-2.2) L 07/25/18 07:30 Total Bilirubin 0.4 mg/dL (0.2-1.3) 07/26/18 06:00 AST 22 U/L (14-36) 07/26/18 06:00 ALT 25 U/L (7-56) 07/26/18 06:00 Alkaline Phosphatase 50 U/L (38-126) 07/26/18 06:00 Troponin I < 0.01 ng/mL 07/25/18 01:30 Total Protein 6.5 g/dL (5.8-8.3) 07/26/18 06:00 Albumin 3.7 g/dL (3.0-4.8) 07/26/18 06:00 Globulin 2.8 gm/dL 07/26/18 06:00 Albumin/Globulin Ratio 1.4 (1.1-1.8) 07/26/18 06:00 Triglycerides 237 mg/dL (35-160) H 07/25/18 07:30 Cholesterol 154 mg/dL (130-200) 07/25/18 07:30 LDL Cholesterol Direct 77 mg/dL (0-129) 07/25/18 07:30 HDL Cholesterol 52 mg/dL (29-60) 07/25/18 07:30 25-OH Vitamin D Total 34.8 NG/ML (30.0-100.0) 07/25/18 07:30 TSH 3rd Generation 1.54 mIU/mL (0.46-4.68) 07/25/18 07:30 - Hospital Course Hospital Course: HPI: Mrs. Washington is a 63 year old female with past medical history of hypertension, diabetes mellitus, and hyperlipidemia who presents to ED following a syncopal episode yesterday evening about 10 hours ago. She states that she was sitting on the toilet in the bathroom when she began to feel light-headed and felt very sweaty. The next thing she remembers is waking up on the floor. She is unsure exactly how long she was down as her was asleep at the time. She called out to her who came and found her on the floor. EMS was subsequently called. She admits to feeling similar episodes of dizziness/light- headedness in the past with associated diaphoresis but that she has not passed out before like last night. She does not recall whether these episodes are associated with prolonged standing, emotional distress, or other inciting factors. She states that she has felt light-headed in the past while sitting and while standing but lying down helps to relieve the feelings. Currently, she states she feels better and denies headche, blurred vision, dizziness, fever/chills, chest pain, shortness of breath, cough, palpitations, leg/arm weakness, seizure, or peripheral numbness/tingling. During the course of admission: Patient was restarted on all home medications. Metformin and januvia were held and diabetes was managed using a medium dose insulin sliding scaled while on the medicine floors. Neurology was consulted for syncopal episodes. CT head showed no acute intracranial findings. Echocardiogram demonstrated normal ejection fraction at 65%, asymmetric left ventricular hypertrophy. Neurology recommendations including continuing aspirin 81 mg PO daily and outpatient ENT evaluation for possible videonystagmography. Physical therapy evaluated the patient and medically cleared for discharge to home. Patient is medically stable for discharge to home, as per Dr. Maldonado. Patient is instructed to continue all home medications as prescribed. Please follow up with your primary care provider within 1 week of discharge for continued care and management. Please also follow up with ENT (ear, nose and throat doctor) for evaluation and management of dizziness/lightheadedness. Referral has been provided. Prescription has also been provided for outpatient physical therapy, per inpatient Physical Therapy recommendations. If symptoms worsen, please return to the Emergency Department. The following is a summary of hospital course. For further detail, please refer to EMR. - Date & Time of H&P Date of H&P: 07/26/18 Time of H&P: 14:48 Discharge Exam - Head Exam Head Exam: ATRAUMATIC, NORMOCEPHALIC - Eye Exam Eye Exam: EOMI, Normal appearance - ENT Exam ENT Exam: Mucous Membranes Moist, Normal Exam - Respiratory Exam Respiratory Exam: Clear to PA & Lateral, NORMAL BREATHING PATTERN, UNREMARKABLE. absent: Accessory Muscle Use, Rales, Rhonchi, Wheezes, Respiratory Distress, Stridor - Cardiovascular Exam Cardiovascular Exam: REGULAR RHYTHM, +S1, +S2 - GI/Abdominal Exam GI & Abdominal Exam: Normal Bowel Sounds, Soft, Unremarkable. absent: Distended, Firm, Guarding, Hernia, Rebound, Rigid, Tenderness - Extremities Exam Extremities exam: full ROM, normal capillary refill, normal inspection, pedal pulses present - Back Exam Back exam: NORMAL INSPECTION - Neurological Exam Neurological exam: Alert, CN II-XII Intact, Normal Gait, Oriented x3 - Psychiatric Exam Psychiatric exam: Normal Affect, Normal Mood - Skin Skin Exam: Dry, Intact, Normal Color, Warm Discharge Plan - Discharge Medications Prescriptions: Aspirin [Ecotrin] 81 mg PO DAILY #30 tabec - Follow Up Plan Condition: FAIR Disposition: HOME/ ROUTINE Instructions: Syncope (Fainting) (DC) Additional Instructions: Patient is medically stable for discharge to home, as per Dr. Maldonado. Patient is instructed to continue all home medications as prescribed. Please follow up with your primary care provider within 1 week of discharge for continued care and management. Please also follow up with ENT (ear, nose and throat doctor) for evaluation and management of dizziness/lightheadedness. Referral has been provided. Prescription has also been provided for outpatient physical therapy, per inpatient Physical Therapy recommendations. If symptoms worsen, please return to the Emergency Department. Referrals: Cl Rose DO [Staff Provider] - Margarette Mccall MD [Primary Care Provider] - <Be Maldonado - Last Filed: 07/26/18 15:16> Provider - Provider Date of Admission: 07/25/18 04:35 Attending physician: Be Maldonado MD Primary care physician: Margarette Mccall MD Hospital Course - Lab Results Lab Results: Most Recent Lab Values WBC 6.1 10^3/uL (4.5-11.0) D 07/26/18 06:00 RBC 4.00 10^6/uL (3.5-6.1) 07/26/18 06:00 Hgb 11.5 g/dL (12.0-16.0) L 07/26/18 06:00 Hct 35.0 % (36.0-48.0) L 07/26/18 06:00 MCV 87.5 fl (80.0-105.0) 07/26/18 06:00 MCH 28.8 pg (25.0-35.0) 07/26/18 06:00 MCHC 32.9 g/dl (31.0-37.0) 07/26/18 06:00 RDW 13.4 % (11.5-14.5) 07/26/18 06:00 Plt Count 304 10^3/uL (120.0-450.0) 07/26/18 06:00 MPV 9.4 fl (7.0-11.0) 07/26/18 06:00 Gran % 39.9 % (50.0-68.0) L 07/26/18 06:00 Lymph % (Auto) 46.2 % (22.0-35.0) H 11/08/18 06:00 [place] % (Auto) 8.5 % (1.0-6.0) H 07/26/18 06:00 Eos % (Auto) 5.2 % (1.5-5.0) H 07/26/18 06:00 Baso % (Auto) 0.2 % (0.0-3.0) 07/26/18 06:00 Gran # 2.45 (1.4-6.5) 07/26/18 06:00 Lymph # (Auto) 2.8 (1.2-3.4) 07/26/18 06:00 [place] # (Auto) 0.5 (0.1-0.6) 07/26/18 06:00 Eos # (Auto) 0.3 (0.0-0.7) 07/26/18 06:00 Baso # (Auto) 0.01 K/mm3 (0.0-2.0) 07/26/18 06:00 D-Dimer, Quantitative 323 ng/mlDDU (0-243) H 07/25/18 01:30 Sodium 139 mmol/L (132-148) 07/26/18 06:00 Potassium 3.7 mmol/L (3.6-5.0) 07/26/18 06:00 Chloride 104 mmol/L (98-107) 07/26/18 06:00 Carbon Dioxide 28 mmol/L (21-33) 07/26/18 06:00 Anion Gap 10 (10-20) 07/26/18 06:00 BUN 10 mg/dL (7-21) 07/26/18 06:00 Creatinine 0.5 mg/dl (0.7-1.2) L 07/26/18 06:00 Est GFR ( Amer) > 60 07/26/18 06:00 Est GFR (Non-Af Amer) > 60 07/26/18 06:00 POC Glucose (mg/dL) 116 mg/dL (65-110) H 07/26/18 11:13 Random Glucose 112 mg/dL (70-110) H 07/26/18 06:00 Hemoglobin A1c 6.1 % (4.2-6.5) 07/25/18 07:30 Calcium 9.2 mg/dL (8.4-10.5) 07/26/18 06:00 Phosphorus 4.1 mg/dL (2.5-4.5) 07/25/18 07:30 Magnesium 1.6 mg/dL (1.7-2.2) L 07/25/18 07:30 Total Bilirubin 0.4 mg/dL (0.2-1.3) 07/26/18 06:00 AST 22 U/L (14-36) 07/26/18 06:00 ALT 25 U/L (7-56) 07/26/18 06:00 Alkaline Phosphatase 50 U/L (38-126) 07/26/18 06:00 Troponin I < 0.01 ng/mL 07/25/18 01:30 Total Protein 6.5 g/dL (5.8-8.3) 07/26/18 06:00 Albumin 3.7 g/dL (3.0-4.8) 07/26/18 06:00 Globulin 2.8 gm/dL 07/26/18 06:00 Albumin/Globulin Ratio 1.4 (1.1-1.8) 07/26/18 06:00 Triglycerides 237 mg/dL (35-160) H 07/25/18 07:30 Cholesterol 154 mg/dL (130-200) 07/25/18 07:30 LDL Cholesterol Direct 77 mg/dL (0-129) 07/25/18 07:30 HDL Cholesterol 52 mg/dL (29-60) 07/25/18 07:30 25-OH Vitamin D Total 34.8 NG/ML (30.0-100.0) 07/25/18 07:30 TSH 3rd Generation 1.54 mIU/mL (0.46-4.68) 07/25/18 07:30 Attending/Attestation - Attestation I have personally seen and examined this patient.: Yes I have fully participated in the care of the patient.: Yes I have reviewed all pertinent clinical information, including history, physical exam and plan: Yes Notes (Text): 07/26/18 15:12 63 year old female with past medical history of hypertension, diabetes and dyslipidemia who presented with syncopal episode while on the commode. She was admitted for evaluation of syncope. She had CT head which was negative for acute findings. Carotid dopplers and echocardiogram were also reviewed as above. She was seen by cardiology and neurology who recommended outpatient ENT evaluation for VNG. She was also seen by PT which she tolerated well. Patient is discharged home to follow up with pmd. Follow up with ENT for VNG. Continue with home medications for hypertension, diabetes and dyslipidemia. Continue with aspirin. Be Maldonado MD Hospitalist.
== END 2018-07-26 13:53 | disposition home or self-care (01) ==
LOC: ED 23:55 → ERH 07-25 04:35 → 2RNO 07-25 05:17
PROVIDERS: ADMIT Internal Medicine; ATTEND Internal Medicine
DX: R55 Syncope and collapse (principal); R42 Dizziness and giddiness; E11.9 Type 2 diabetes mellitus without complications; I10 Essential (primary) hypertension; D64.9 Anemia, unspecified; E78.00 Pure hypercholesterolemia, unspecified; E78.5 Hyperlipidemia, unspecified; Z79.84 Long term (current) use of oral hypoglycemic drugs
CPT/HCPCS: 36415; 70450; 71045; 71275; 80053; 80061; 82306; 82948; 83036; 83735; 84100; 84443; 84484; 85025; 85378; 93005; 93306; 93880; 96372; 96374; 97116; 97161; 99285; G0378; G8978; G8979; J1650; J3475; J7030; Q9967

== ENCOUNTER 2018-11-23 01:27 | Observation (INO) | payer MEDICAID ==
[2018-11-23 01:38] VITALS: BMI 32.1
--- NOTE | 2018-11-23 02:15 | ED PDOC ---
Arrival/HPI - General Chief Complaint: Weakness/Neurological Deficit Time Seen by Provider: 11/23/18 01:29 Historian: Patient - History of Present Illness Narrative History of Present Illness (Text): 11/23/18 02:12 63 year old female, whose past medical history includes Hypertension, Diabetes, and Hypercholesterolemia, presents to the emergency department for evaluation status post syncopal episode. Patient reports she woke up from bed to go to the bathroom. Patient states she began feeling cramps in both her legs after, so she called her and sat down. Patient states her then witness her pass out. Patient denies any fall or trauma. Patient also denies any chest pain, shortness of breath, cough, abdominal pain, nausea, vomiting, diarrhea, back pain, neck pain, or any other complaint. PMD: Cal Pfeiffer Time/Duration: Prior to Arrival Symptom Onset: Sudden Symptom Course: Unchanged Activities at Onset: Light Context: Home Past Medical History - Provider Review Nursing Documentation Reviewed: Yes - Infectious Disease Hx of Infectious Diseases: None - Cardiac Hx Hypertension: Yes - Pulmonary Hx Respiratory Disorders: No Hx Asthma: No Hx Bronchitis: No Hx Chronic Obstructive Pulmonary Disease (COPD): No Hx Emphysema: No Hx Pneumonia: No Hx Respiratory Aspiration: No Hx Respiratory Tract Infection: No Hx Sleep Apnea: No Hx Tuberculosis: No - Neurological Hx Neurological Disorder: No Hx Alzheimer's Disease: No HX Cerebrovascular Accident: No Hx Dementia: No Hx Dizziness: No Hx Meningitis: No Hx Migraine: No Hx Parkinson's Disease: No Hx Seizures: No Hx Transient Ischemic Attacks (TIA): No - HEENT Hx HEENT Disorder: No Hx Blind: No Hx Cataracts: No Hx Deafness: No Hx Difficulty Chewing: No Hx Epistaxis: No Hx Glaucoma: No Hx Macular Degeneration: No - Renal Hx Renal Disorder: No Hx Dialysis: No Hx Kidney Stones: No Hx Neurogenic Bladder: No Hx Pyelonephritis: No Hx Renal Cancer: No Hx Renal Failure: No - Endocrine/Metabolic Hx Endocrine Disorders: Yes Hx Diabetes Mellitus Type 1: Yes - Hematological/Oncological Hx Blood Disorders: No Hx AIDS: No Hx Anemia: No Hx Cancer: No Hx Chemotherapy: No Hx Cirrhosis: No Hx Hemophilia: No Hx Hepatitis A: No Hx Hepatitis B: No Hx Hepatitis C: No Hx Metastasis: No Hx Shingles: No Hx Sickle Cell Disease: No Hx Unexplained Bleeding: No - Integumentary Hx Dermatological Disorder: No Hx Basal Cell Carcinoma: No Hx Eczema: No Hx Melanoma: No Hx Psoriasis: No Hx Squamous Cell Carcinoma: No - Musculoskeletal/Rheumatological Hx Musculoskeletal Disorders: No Hx Arthritis: No Hx Back Pain: No Hx Degenerative Joint Disease: No Hx Falls: No Hx Fractures: No Hx Gout: No Hx Herniated Disk: No Hx Myasthenia Gravis: No Hx Osteoarthritis: No Hx Osteomyelitis: No Hx Osteoporosis: No Hx Rhabdomyolysis: No Hx Spinal Stenosis: No Hx Unsteady Gait: No - Gastrointestinal Hx Gastrointestinal Disorders: Yes Hx Colostomy: No Hx Crohn's Disease: No Hx Diverticulitis: No Hx Gall Bladder Disease: Yes Hx Gastroesophageal Reflux: No Hx Ileostomy: No Hx Liver Failure: No Hx Pancreatitis: No HX Swallowing Problems: No - Genitourinary/Gynecological Hx Genitourinary Disorders: No Hx Hematuria: No Hx Incontinence: No Hx Sexually Transmitted Diseases: No Hx Urinary Tract Infection: No - Psychiatric Hx Psychophysiologic Disorder: No Hx Anxiety: No Hx Bipolar Disorder: No Hx Depression: No Hx Emotional Abuse: No Hx Hallucinations: No Hx Panic Disorder: No Hx Post Traumatic Stress Disorder: No Hx Psychosis: No Hx Physical Abuse: No Hx Schizophrenia: No Hx Sexual Abuse: No Hx Substance Use: No - Surgical History Hx Cholecystectomy: Yes Hx Orthopedic Surgery: Yes (left shoulder rotator cuff) Other/Comment: Cyst on left breast removed - Anesthesia Hx Anesthesia: Yes Family/Social History - Physician Review Nursing Documentation Reviewed: Yes Family/Social History: No Known Family HX Smoking Status: Never Smoked Hx Alcohol Use: No Hx Substance Use: No Allergies/Home Meds Allergies/Adverse Reactions: Allergies Penicillins Adverse Reaction (Verified 07/25/18 00:14) FEVER Home Medications: Home Meds Medication Instructions Recorded Confirmed Losartan [Cozaar] 100 mg PO DAILY 07/25/18 08/16/18 MetFORMIN [glucoPHAGE] 1,000 mg PO BID 07/25/18 08/16/18 Pravastatin Sodium [Pravachol] 40 mg PO DAILY 07/25/18 08/16/18 SITagliptin [Januvia] 100 mg PO DAILY 07/25/18 08/16/18 Carvedilol [Coreg] 12.5 mg PO BID 08/16/18 08/16/18 Cholecalciferol (Vitamin D3) 5,000 unit PO DAILY 08/16/18 08/16/18 [Dialyvite Vitamin D] Lansoprazole [Prevacid] 30 mg PO DAILY 08/16/18 08/16/18 Liraglutide [Victoza] 6 mg SC DAILY 08/16/18 08/16/18 Magnesium Oxide [Magnesium] 400 mg PO DAILY 08/16/18 08/16/18 Potassium Gluconate [Potassium] 600 mg PO DAILY 08/16/18 08/16/18 Pravastatin Sodium [Pravachol] 40 mg PO DAILY 08/16/18 08/16/18 amLODIPine [Norvasc] 5 mg PO DAILY 08/16/18 08/16/18 Review of Systems - Physician Review All systems were reviewed & negative as marked: Yes - Review of Systems Respiratory: absent: SOB Musculoskeletal: absent: Back Pain Physical Exam - Physical Exam Narrative Physical Exam (Text): 11/23/18 02:17 Constitutional: No acute distress. Head: Normocephalic. Atraumatic. Eyes: PERRL. ENT: Moist mucous membranes. Neck: Supple. Cardiovascular: Regular rate. Chest: No tenderness. Respiratory: Clear to auscultation bilaterally. GI: Soft. Nontender. Nondistended. Back: No CVA tenderness. Musculoskeletal: No tenderness or swelling of extremities. Skin: No rash. Neurologic: Alert, no focal deficit. Vital Signs Reviewed: Yes Vital Signs Temp Pulse Resp BP Pulse Ox 11/23/18 01:45 97.8 F 66 18 115/75 95 11/23/18 01:43 97.8 F 63 18 115/75 95 Temperature: Afebrile Blood Pressure: Normal Pulse: Regular Respiratory Rate: Normal Appearance: Positive for: Well-Appearing, Non-Toxic, Comfortable Pain Distress: None Mental Status: Positive for: Alert and Oriented X 3 Medical Decision Making ED Course and Treatment: 11/23/18 02:18 Impression: 63 year old female presents for evaluation of syncopal episode Plan: -- CMP, Creatine, Trop -- CBC, Platelets -- Chest X-ray -- EKG -- Reassess and disposition Prior Visits: Notes and results from previous visits were reviewed. Progress Notes: EKG reviewed by me, shows: Normal sinus rhythm @ 60bpm No STT wave changes 11/23/18 02:56 Chest X-ray reviewed by me, shows: No acute disease. - RAD Interpretation Radiology Orders: 11/23/18 01:59 CHEST PORTABLE [RAD] Stat - Scribe Statement The provider has reviewed the documentation as recorded by the [employer] Provider Scribe Attestation: All medical record entries made by the Scribe were at my direction and personally dictated by me. I have reviewed the chart and agree that the record accurately reflects my personal performance of the history, physical exam, medical decision making, and the department course for this patient. I have also personally directed, reviewed, and agree with the discharge instructions and disposition. Disposition/Present on Arrival - Present on Arrival Any Indicators Present on Arrival: No History of DVT/PE: No History of Uncontrolled Diabetes: No Urinary Catheter: No History of Decub. Ulcer: No History Surgical Site Infection Following: None - Disposition Have Diagnosis and Disposition been Completed?: Yes Diagnosis: Syncope Disposition: HOSPITALIZED Disposition Time: 02:34 Patient Plan: Observation, Telemetry Condition: GOOD Discharge Instructions (ExitCare): Syncope (ED) Referrals: Margarette Mccall MD [Primary Care Provider] - Follow up with primary Forms: BMdr (Khmer)
[2018-11-23 02:30] LABS: ALB/GLOB RATIO 1.4 (1.1-1.8); ALBUMIN 3.9 g/dL (3.0-4.8); ALT/SGPT 12 U/L (7-56); AST/SGOT 20 U/L (14-36); BLOOD UREA NITROGEN 22 mg/dL (7-21); CALCIUM 9.7 mg/dL (8.4-10.5); GFR NON-AFRICAN AMERICAN > 60
[2018-11-23 02:41] LABS: BASO # 0.02 K/mm3 (0.0-2.0); BASO % 0.2 % (0.0-3.0); EOS # 0.3 (0.0-0.7); EOS % 3.6 % (1.5-5.0); HEMOGLOBIN 11.6 g/dL (12.0-16.0); INR 1.08; LYMPH # 2.7 (1.2-3.4); LYMPH % 33.5 % (22.0-35.0); MEAN CELL VOLUME 85.4 fl (80.0-105.0); MEAN CORPUSCULAR HEMOGLOBIN 28.7 pg (25.0-35.0); MEAN CORPUSCULAR HGB CONC 33.6 g/dl (31.0-37.0); MEAN PLATELET VOLUME 9.3 fl (7.0-11.0); MONO # 0.7 (0.1-0.6); MONO % 8.6 % (1.0-6.0); RBC 4.04 10^6/uL (3.5-6.1); TROPONIN I < 0.01 ng/mL; WHITE BLOOD COUNT 8.2 10^3/uL (4.5-11.0)
--- NOTE | 2018-11-23 03:39 | CP.PCM.HP ---
<Giorgio Sanford - Last Filed: 11/23/18 04:09> History of Present Illness - History of Present Illness History of Present Illness: PYG1 Hospitalist History and Physical Exam Note for Dr. Love This is a 63-year-old F with PMH of HTN, DM, HLD, who arrives to [facility] status post syncopal episode. Patient reports she woke up from bed to go to the bathroom. Patient states she began feeling severe cramps in her bilateral lower extremities, which prompted her to call out to her . Patient states she then sat down. Per Patient, her then witness her "pass out." Patient denies recollection of this event. Patient's states she did not hit her head. Patient Patient admits to diaphoresis, palpitations, and "being white as a ghost" when this event occurred. Patient denies any fall or trauma. ROS is unremarkable for chest pain, shortness of breath, cough, abdominal pain, nausea, vomiting, diarrhea, back pain, neck pain, fever and/or chills. PMH: HTN, DM2, HLD PSH: R shoulder rotator cuff repair, cholecystectomy, L ovarian cyst removal, R breast cyst removal Family History: Mother and father both had HTN and DM2 Social History: denies tobacco, alcohol, drug use. 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 Allergies: PCN Meds: Losartan 100 mg daily, norvasc 10 daily, metformin 1000 BID, Januvia 100 daily, pravastatin (unknown dose, need to call pharmacy in AM to confirm dosage) Pharmacy: [facility] [address] [place] [id number] PMD: Cal Pfeiffer Present on Admission - Present on Admission Any Indicators Present on Admission: No History of DVT/PE: No History of Uncontrolled Diabetes: No Urinary Catheter: No Decubitus Ulcer Present: No Review of Systems - Review of Systems All systems: reviewed and no additional remarkable complaints except (as per HPI) Past Patient History - Infectious Disease Hx of Infectious Diseases: None - Past Social History Smoking Status: Never Smoked - CARDIAC Hx Hypertension: Yes - PULMONARY Hx Respiratory Disorders: No Hx Asthma: No Hx Bronchitis: No Hx Chronic Obstructive Pulmonary Disease (COPD): No Hx Emphysema: No Hx Pneumonia: No Hx Respiratory Aspiration: No Hx Respiratory Tract Infection: No Hx Sleep Apnea: No Hx Tuberculosis: No - NEUROLOGICAL Hx Neurological Disorder: No Hx Alzheimer's Disease: No HX Cerebrovascular Accident: No Hx Dementia: No Hx Dizziness: No Hx Meningitis: No Hx Migraine: No Hx Parkinson's Disease: No Hx Seizures: No Hx Transient Ischemic Attacks (TIA): No - HEENT Hx HEENT Problems: No Hx Blind: No Hx Cataracts: No Hx Deafness: No Hx Difficulty Chewing: No Hx Epistaxis: No Hx Glaucoma: No Hx Macular Degeneration: No - RENAL Hx Chronic Kidney Disease: No Hx Dialysis: No Hx Kidney Stones: No Hx Neurogenic Bladder: No Hx Pyelonephritis: No Hx Renal (Kidney) Cancer: No Hx Renal Failure: No - ENDOCRINE/METABOLIC Hx Endocrine Disorders: Yes Hx Diabetes Mellitus Type 1: Yes - HEMATOLOGICAL/ONCOLOGICAL Hx Blood Disorders: No Hx AIDS: No Hx Anemia: No Hx Cancer: No Hx Chemotherapy: No Hx Cirrhosis: No Hx Hemophilia: No Hx Hepatitis A: No Hx Hepatitis B: No Hx Hepatitis C: No Hx Metastesis: No Hx Shingles: No Hx Sickle Cell Disease: No Hx Unexplained Bleeding: No - INTEGUMENTARY Hx Dermatological Problems: No Hx Basil Cell: No Hx Eczema: No Hx Melanoma: No Hx Psoriasis: No Hx Squamous Cell: No - MUSCULOSKELETAL/RHEUMATOLOGICAL Hx Musculoskeletal Disorders: No Hx Arthritis: No Hx Back Pain: No Hx Degenerative Joint Disease: No Hx Falls: No Hx Fractures: No Hx Gout: No Hx Herniated Disk: No Hx Myasthenia Gravis: No Hx Osteoarthritis: No Hx Osteomyelitis: No Hx Osteoporosis: No Hx Rhabdomyolysis: No Hx Spinal Stenosis: No Hx Unsteady Gait: No - GASTROINTESTINAL Hx Gastrointestinal Disorders: Yes Hx Colostomy: No Hx Crohn's Disease: No Hx Diverticulitis: No Hx Gall Bladder Disease: Yes Hx Gastroesophageal Reflux: No Hx Ileostomy: No Hx Liver Failure: No Hx Pancreatitis: No HX Swallowing Problems: No - GENITOURINARY/GYNECOLOGICAL Hx Genitourinary Disorders: No Hx Hematuria: No Hx Incontinence: No Hx Sexually Transmitted Disorders: No Hx Urinary Tract Infection: No - PSYCHIATRIC Hx Psychophysiologic Disorder: No Hx Anxiety: No Hx Bipolar Disorder: No Hx Depression: No Hx Emotional Abuse: No Hx Hallucinations: No Hx Panic Symptoms: No Hx Post Traumatic Stress Disorder: No Hx Psychosis: No Hx Physical Abuse: No Hx Schizophrenia: No Hx Sexual Abuse: No Hx Substance Use: No - SURGICAL HISTORY Hx Cholecystectomy: Yes Hx Orthopedic Surgery: Yes (left shoulder rotator cuff) Other/Comment: Cyst on left breast removed - ANESTHESIA Hx Anesthesia: Yes Meds Allergies/Adverse Reactions: Allergies Allergy/AdvReac Type Severity Reaction Status Date / Time Penicillins AdvReac rash & Verified 11/23/18 05:13 fever Physical Exam - Constitutional Appears: Non-toxic, No Acute Distress - Head Exam Head Exam: ATRAUMATIC, NORMAL INSPECTION, NORMOCEPHALIC - Eye Exam Eye Exam: EOMI, Normal appearance Pupil Exam: NORMAL ACCOMODATION - ENT Exam ENT Exam: Mucous Membranes Moist - Neck Exam Neck exam: Positive for: Normal Inspection - Respiratory Exam Respiratory Exam: Clear to Auscultation Bilateral, NORMAL BREATHING PATTERN. absent: Accessory Muscle Use, Chest Wall Tenderness, Decreased Breath Sounds, Wheezes, Stridor - Cardiovascular Exam Cardiovascular Exam: REGULAR RHYTHM, +S1, +S2 - GI/Abdominal Exam GI & Abdominal Exam: Normal Bowel Sounds, Soft. absent: Tenderness - Extremities Exam Extremities exam: Positive for: full ROM, normal capillary refill, normal inspection, pedal pulses present. Negative for: joint swelling, pedal edema, tenderness - Back Exam Back exam: NORMAL INSPECTION - Neurological Exam Neurological exam: Alert, CN II-XII Intact, Oriented x3 Additional comments: no pronator drift no LE drift bilaterally MS 5/5 in upper and lower extremities bilaterally gross sensation in tact bilaterally [id number] in tact Results - Vital Signs Recent Vital Signs: Last Vital Signs Temp 97.5 F L 11/23/18 03:02 Pulse 72 11/23/18 03:02 Resp 18 11/23/18 03:02 BP 122/60 11/23/18 03:02 Pulse Ox 95 11/23/18 03:02 - Labs Result Diagrams: 11/23/18 02:12 11/23/18 02:12 Labs: Laboratory Results - last 24 hr 11/23/18 11/23/18 11/23/18 01:31 02:12 02:12 WBC 8.2 D RBC 4.04 Hgb 11.6 L Hct 34.5 L MCV 85.4 MCH 28.7 MCHC 33.6 RDW 13.0 Plt Count 292 MPV 9.3 Neut % (Auto) 54.1 Lymph % (Auto) 33.5 [place] % (Auto) 8.6 H Eos % (Auto) 3.6 Baso % (Auto) 0.2 Lymph # (Auto) 2.7 [place] # (Auto) 0.7 H Eos # (Auto) 0.3 Baso # (Auto) 0.02 Absolute Neuts (auto) 4.42 PT 12.0 INR 1.08 APTT 28.0 Sodium Potassium Chloride Carbon Dioxide Anion Gap BUN Creatinine Est GFR ( Amer) Est GFR (Non-Af Amer) POC Glucose (mg/dL) 131 H Random Glucose Calcium Total Bilirubin AST ALT Alkaline Phosphatase Total Creatine Kinase Troponin I Total Protein Albumin Globulin Albumin/Globulin Ratio 11/23/18 02:12 WBC RBC Hgb Hct MCV MCH MCHC RDW Plt Count MPV Neut % (Auto) Lymph % (Auto) [place] % (Auto) Eos % (Auto) Baso % (Auto) Lymph # (Auto) [place] # (Auto) Eos # (Auto) Baso # (Auto) Absolute Neuts (auto) PT INR APTT Sodium 136 Potassium 3.4 L Chloride 99 Carbon Dioxide 28 Anion Gap 12 BUN 22 H Creatinine 0.5 L Est GFR ( Amer) > 60 Est GFR (Non-Af Amer) > 60 POC Glucose (mg/dL) Random Glucose 123 H Calcium 9.7 Total Bilirubin 0.2 AST 20 ALT 12 Alkaline Phosphatase 43 Total Creatine Kinase 72 Troponin I < 0.01 Total Protein 6.7 Albumin 3.9 Globulin 2.8 Albumin/Globulin Ratio 1.4 Assessment & Plan - Assessment and Plan (Free Text) Assessment: This is a 63-year-old F with PMH of HTN, DM, HLD, who arrives to [facility] BIB EMS status post syncopal episode. Syncope likely Vasovagal vs Cardiogenic in Etiology - History of previous pre-syncopal symptoms - NS @ 75cc/hr - ECHO was done in 2018 (EF > 65%) see report for details - Troponin negative x1 - F/U TSH - F/U B12 levels - Orthostatic VS - Neuro check q4h for 24 hrs - Monitor electrolytes closely, replete as needed - Cardiology consulted (Dr. Yusuf); recommendations appreciated - Monitor in telemetry History of HTN - Confirm medications in AM History of HLD - Call pharmacy in AM to confirm medications - Lipid Panel from prior visit in 2018 reveal elevated triglycerides History of DM2 - ISS medium - Glucose Checks ACHS - Hypoglycemic protocol - Hold home metformin, januvia while admitted PPX: - DVT: SCD - GI: Protonix - Full Code - HHD - Monitor on telemetry Discussed with Dr. Kate Sanford PGY1 <Rianna Love - Last Filed: 11/23/18 19:25> Results - Vital Signs Recent Vital Signs: Last Vital Signs Temp 98.2 F 11/23/18 06:00 Pulse 80 11/23/18 14:00 Resp 20 11/23/18 06:00 BP 119/76 11/23/18 06:00 Pulse Ox 98 11/23/18 06:00 - Labs Result Diagrams: 11/23/18 02:12 11/23/18 02:12 Labs: Laboratory Results - last 24 hr 11/23/18 11/23/18 11/23/18 01:31 02:12 02:12 WBC 8.2 D RBC 4.04 Hgb 11.6 L Hct 34.5 L MCV 85.4 MCH 28.7 MCHC 33.6 RDW 13.0 Plt Count 292 MPV 9.3 Neut % (Auto) 54.1 Lymph % (Auto) 33.5 [place] % (Auto) 8.6 H Eos % (Auto) 3.6 Baso % (Auto) 0.2 Lymph # (Auto) 2.7 [place] # (Auto) 0.7 H Eos # (Auto) 0.3 Baso # (Auto) 0.02 Absolute Neuts (auto) 4.42 PT 12.0 INR 1.08 APTT 28.0 Sodium Potassium Chloride Carbon Dioxide Anion Gap BUN Creatinine Est GFR ( Amer) Est GFR (Non-Af Amer) POC Glucose (mg/dL) 131 H Random Glucose Calcium Magnesium Total Bilirubin AST ALT Alkaline Phosphatase Total Creatine Kinase Troponin I Total Protein Albumin Globulin Albumin/Globulin Ratio Vitamin B12 Free T4 TSH 3rd Generation 11/23/18 11/23/18 11/23/18 02:12 02:12 02:12 WBC RBC Hgb Hct MCV MCH MCHC RDW Plt Count MPV Neut % (Auto) Lymph % (Auto) [place] % (Auto) Eos % (Auto) Baso % (Auto) Lymph # (Auto) [place] # (Auto) Eos # (Auto) Baso # (Auto) Absolute Neuts (auto) PT INR APTT Sodium 136 Potassium 3.4 L Chloride 99 Carbon Dioxide 28 Anion Gap 12 BUN 22 H Creatinine 0.5 L Est GFR ( Amer) > 60 Est GFR (Non-Af Amer) > 60 POC Glucose (mg/dL) Random Glucose 123 H Calcium 9.7 Magnesium 1.5 L Total Bilirubin 0.2 AST 20 ALT 12 Alkaline Phosphatase 43 Total Creatine Kinase 72 Troponin I < 0.01 Total Protein 6.7 Albumin 3.9 Globulin 2.8 Albumin/Globulin Ratio 1.4 Vitamin B12 684 Free T4 TSH 3rd Generation 5.07 H 11/23/18 11/23/18 11/23/18 02:30 06:36 11:46 WBC RBC Hgb Hct MCV MCH MCHC RDW Plt Count MPV Neut % (Auto) Lymph % (Auto) [place] % (Auto) Eos % (Auto) Baso % (Auto) Lymph # (Auto) [place] # (Auto) Eos # (Auto) Baso # (Auto) Absolute Neuts (auto) PT INR APTT Sodium Potassium Chloride Carbon Dioxide Anion Gap BUN Creatinine Est GFR ( Amer) Est GFR (Non-Af Amer) POC Glucose (mg/dL) 118 H 110 Random Glucose Calcium Magnesium Total Bilirubin AST ALT Alkaline Phosphatase Total Creatine Kinase Troponin I Total Protein Albumin Globulin Albumin/Globulin Ratio Vitamin B12 Free T4 0.93 TSH 3rd Generation 11/23/18 16:19 WBC RBC Hgb Hct MCV MCH MCHC RDW Plt Count MPV Neut % (Auto) Lymph % (Auto) [place] % (Auto) Eos % (Auto) Baso % (Auto) Lymph # (Auto) [place] # (Auto) Eos # (Auto) Baso # (Auto) Absolute Neuts (auto) PT INR APTT Sodium Potassium Chloride Carbon Dioxide Anion Gap BUN Creatinine Est GFR ( Amer) Est GFR (Non-Af Amer) POC Glucose (mg/dL) 106 Random Glucose Calcium Magnesium Total Bilirubin AST ALT Alkaline Phosphatase Total Creatine Kinase Troponin I Total Protein Albumin Globulin Albumin/Globulin Ratio Vitamin B12 Free T4 TSH 3rd Generation Attending/Attestation - Attestation I have personally seen and examined this patient.: Yes I have fully participated in the care of the patient.: Yes I have reviewed all pertinent clinical information: Yes Notes (Text): 11/23/18 19:24 seen and examined. Discussed with resident. Had W/U syncope including a tress test that were all benign in 07/2018. Appears to be vasovagal syncope.
[2018-11-23] MEDS ORDERED: Potassium Chloride 20 mEq ER Tab PO STA (03:48)
[2018-11-23] MEDS ORDERED: Sodium Chloride 0.9% 1,000 ML IV SCH (04:00)
[2018-11-23 05:02] VITALS: RESP 20
[2018-11-23] MEDS ORDERED: Magnesium Sulfate 1 gm in D5W 1 GM/100 ML BAG IVPB ONE (06:00)
[2018-11-23] MEDS ORDERED: Pantoprazole 40 mg EC Tab PO SCH (06:00)
[2018-11-23 08:00] VITALS: BP 119/76; TEMP 98.2; O2SAT 98
[2018-11-23] MEDS: Insulin Regular 1 UNITS/0.01 ML ML SC SCH ×3 (08:30→16:47)
--- NOTE | 2018-11-23 08:49 | RAD ---
Date of service: 11/23/2018 HISTORY: syncope COMPARISON: 07/25/2018 FINDINGS: LUNGS: No active pulmonary disease. PLEURA: No significant pleural effusion identified, no pneumothorax apparent. CARDIOVASCULAR: No aortic atherosclerotic calcification present. Normal cardiac size. No pulmonary vascular congestion. OSSEOUS STRUCTURES: No significant abnormalities. VISUALIZED UPPER ABDOMEN: Normal. OTHER FINDINGS: None. IMPRESSION: No active disease.
[2018-11-23] MEDS ORDERED: Magnesium Oxide 400 mg Tab UD PO SCH (10:00)
[2018-11-23] MEDS ORDERED: POTASSIUM GLUCONATE 600 MG PO SCH ×2 (10:00)
--- NOTE | 2018-11-23 12:04 | CP.PCM.CON ---
History of Present Illness - History of Present Illness History of Present Illness: Neurology consult dictated. 63 yr old woman who is here for syncopal spell that i feel is most likely secondary to ambien and xanax use. EEG completed. will review Plan: 1. No ambien for patient 2. No further neurological intervention. DR. Ledesma Neurology Past Patient History - Infectious Disease Hx of Infectious Diseases: None - Past Social History Smoking Status: Never Smoked - CARDIAC Hx Hypertension: Yes - PULMONARY Hx Respiratory Disorders: No Hx Asthma: No Hx Bronchitis: No Hx Chronic Obstructive Pulmonary Disease (COPD): No Hx Emphysema: No Hx Pneumonia: No Hx Respiratory Aspiration: No Hx Respiratory Tract Infection: No Hx Sleep Apnea: No Hx Tuberculosis: No - NEUROLOGICAL Hx Neurological Disorder: No Hx Alzheimer's Disease: No HX Cerebrovascular Accident: No Hx Dementia: No Hx Dizziness: No Hx Meningitis: No Hx Migraine: No Hx Parkinson's Disease: No Hx Seizures: No Hx Transient Ischemic Attacks (TIA): No - HEENT Hx HEENT Problems: No Hx Blind: No Hx Cataracts: No Hx Deafness: No Hx Difficulty Chewing: No Hx Epistaxis: No Hx Glaucoma: No Hx Macular Degeneration: No - RENAL Hx Chronic Kidney Disease: No Hx Dialysis: No Hx Kidney Stones: No Hx Neurogenic Bladder: No Hx Pyelonephritis: No Hx Renal (Kidney) Cancer: No Hx Renal Failure: No - ENDOCRINE/METABOLIC Hx Endocrine Disorders: Yes Hx Diabetes Mellitus Type 1: Yes - HEMATOLOGICAL/ONCOLOGICAL Hx Blood Disorders: No Hx AIDS: No Hx Anemia: No Hx Cancer: No Hx Chemotherapy: No Hx Cirrhosis: No Hx Hemophilia: No Hx Hepatitis A: No Hx Hepatitis B: No Hx Hepatitis C: No Hx Metastesis: No Hx Shingles: No Hx Sickle Cell Disease: No Hx Unexplained Bleeding: No - INTEGUMENTARY Hx Dermatological Problems: No Hx Basil Cell: No Hx Eczema: No Hx Melanoma: No Hx Psoriasis: No Hx Squamous Cell: No - MUSCULOSKELETAL/RHEUMATOLOGICAL Hx Musculoskeletal Disorders: No Hx Arthritis: No Hx Back Pain: No Hx Degenerative Joint Disease: No Hx Falls: No Hx Fractures: No Hx Gout: No Hx Herniated Disk: No Hx Myasthenia Gravis: No Hx Osteoarthritis: No Hx Osteomyelitis: No Hx Osteoporosis: No Hx Rhabdomyolysis: No Hx Spinal Stenosis: No Hx Unsteady Gait: No - GASTROINTESTINAL Hx Gastrointestinal Disorders: Yes Hx Colostomy: No Hx Crohn's Disease: No Hx Diverticulitis: No Hx Gall Bladder Disease: Yes Hx Gastroesophageal Reflux: No Hx Ileostomy: No Hx Liver Failure: No Hx Pancreatitis: No HX Swallowing Problems: No - GENITOURINARY/GYNECOLOGICAL Hx Genitourinary Disorders: No Hx Hematuria: No Hx Incontinence: No Hx Sexually Transmitted Disorders: No Hx Urinary Tract Infection: No - PSYCHIATRIC Hx Psychophysiologic Disorder: No Hx Anxiety: No Hx Bipolar Disorder: No Hx Depression: No Hx Emotional Abuse: No Hx Hallucinations: No Hx Panic Symptoms: No Hx Post Traumatic Stress Disorder: No Hx Psychosis: No Hx Physical Abuse: No Hx Schizophrenia: No Hx Sexual Abuse: No Hx Substance Use: No - SURGICAL HISTORY Hx Cholecystectomy: Yes Hx Orthopedic Surgery: Yes (left shoulder rotator cuff) Other/Comment: Cyst on left breast removed - ANESTHESIA Hx Anesthesia: Yes Meds Allergies/Adverse Reactions: Allergies Allergy/AdvReac Type Severity Reaction Status Date / Time Penicillins AdvReac rash & Verified 11/23/18 05:13 fever - Medications Medications: Current Medications Aspirin (Ecotrin) 81 mg PO DAILY [facility] Last Admin: 11/23/18 10:06 Dose: 81 mg Atorvastatin Calcium (Lipitor) 10 mg PO DIN [facility] Dextrose (Dextrose 50% Inj) 0 ml IV STAT PRN; Protocol PRN Reason: Hypoglycemia Protocol Sodium Chloride (Sodium Chloride 0.9%) 1,000 mls @ 75 mls/hr IV .[id number] [facility] Last Admin: 11/23/18 03:55 Dose: 75 mls/hr Dextrose (Dextrose 5% In Water 1000 Ml) 1,000 mls @ 0 mls/hr IV .Q0M PRN; Protocol PRN Reason: Hypoglycemia Protocol Insulin Human Regular (Humulin R) 0 units SC [facility]; Protocol Last Admin: 11/23/18 08:30 Dose: Not Given Levothyroxine Sodium (Synthroid) 50 mcg PO 0600 [facility] Losartan Potassium (Cozaar) 100 mg PO DAILY [facility] Last Admin: 11/23/18 10:06 Dose: 100 mg Magnesium Oxide (Mag-Ox) 400 mg PO DAILY [facility] Last Admin: 11/23/18 10:06 Dose: 400 mg Non-Formulary Medication (Potassium Gluconate [Potassium]) 600 mg PO DAILY [facility] Last Admin: 11/23/18 10:07 Dose: Not Given Pantoprazole Sodium (Protonix Ec Tab) 40 mg PO 0600 [facility] Last Admin: 11/23/18 05:23 Dose: 40 mg Results - Vital Signs Recent Vital Signs: Last Vital Signs Temp 98.2 F 11/23/18 06:00 Pulse 75 11/23/18 06:00 Resp 20 11/23/18 06:00 BP 119/76 11/23/18 06:00 Pulse Ox 98 11/23/18 06:00 - Labs Result Diagrams: 11/23/18 02:12 11/23/18 02:12 Labs: Laboratory Results - last 24 hr 11/23/18 11/23/18 11/23/18 01:31 02:12 02:12 WBC 8.2 D RBC 4.04 Hgb 11.6 L Hct 34.5 L MCV 85.4 MCH 28.7 MCHC 33.6 RDW 13.0 Plt Count 292 MPV 9.3 Neut % (Auto) 54.1 Lymph % (Auto) 33.5 [place] % (Auto) 8.6 H Eos % (Auto) 3.6 Baso % (Auto) 0.2 Lymph # (Auto) 2.7 [place] # (Auto) 0.7 H Eos # (Auto) 0.3 Baso # (Auto) 0.02 Absolute Neuts (auto) 4.42 PT 12.0 INR 1.08 APTT 28.0 Sodium Potassium Chloride Carbon Dioxide Anion Gap BUN Creatinine Est GFR ( Amer) Est GFR (Non-Af Amer) POC Glucose (mg/dL) 131 H Random Glucose Calcium Magnesium Total Bilirubin AST ALT Alkaline Phosphatase Total Creatine Kinase Troponin I Total Protein Albumin Globulin Albumin/Globulin Ratio Free T4 TSH 3rd Generation 11/23/18 11/23/18 11/23/18 02:12 02:12 02:12 WBC RBC Hgb Hct MCV MCH MCHC RDW Plt Count MPV Neut % (Auto) Lymph % (Auto) [place] % (Auto) Eos % (Auto) Baso % (Auto) Lymph # (Auto) [place] # (Auto) Eos # (Auto) Baso # (Auto) Absolute Neuts (auto) PT INR APTT Sodium 136 Potassium 3.4 L Chloride 99 Carbon Dioxide 28 Anion Gap 12 BUN 22 H Creatinine 0.5 L Est GFR ( Amer) > 60 Est GFR (Non-Af Amer) > 60 POC Glucose (mg/dL) Random Glucose 123 H Calcium 9.7 Magnesium 1.5 L Total Bilirubin 0.2 AST 20 ALT 12 Alkaline Phosphatase 43 Total Creatine Kinase 72 Troponin I < 0.01 Total Protein 6.7 Albumin 3.9 Globulin 2.8 Albumin/Globulin Ratio 1.4 Free T4 TSH 3rd Generation 5.07 H 11/23/18 11/23/18 11/23/18 02:30 06:36 11:46 WBC RBC Hgb Hct MCV MCH MCHC RDW Plt Count MPV Neut % (Auto) Lymph % (Auto) [place] % (Auto) Eos % (Auto) Baso % (Auto) Lymph # (Auto) [place] # (Auto) Eos # (Auto) Baso # (Auto) Absolute Neuts (auto) PT INR APTT Sodium Potassium Chloride Carbon Dioxide Anion Gap BUN Creatinine Est GFR ( Amer) Est GFR (Non-Af Amer) POC Glucose (mg/dL) 118 H 110 Random Glucose Calcium Magnesium Total Bilirubin AST ALT Alkaline Phosphatase Total Creatine Kinase Troponin I Total Protein Albumin Globulin Albumin/Globulin Ratio Free T4 0.93 TSH 3rd Generation
--- NOTE | 2018-11-23 13:28 | CP.PCM.PN ---
Subjective - Date & Time of Evaluation Date of Evaluation: 11/23/18 Time of Evaluation: 07:00 - Subjective Subjective: Srinivasa Orantes DO, PGY-1 Hospitalist Progress Note for Dr. Soto Patient was seen and examined at bedside this AM. She reports feeling fine and has not had any additional episodes of dizziness, unsteadiness, or other pre- syncopal aura. Objective - Vital Signs/Intake and Output Vital Signs (last 24 hours): Temp Pulse Resp BP Pulse Ox 98.2 F 78 20 119/76 98 11/23/18 06:00 11/23/18 10:00 11/23/18 06:00 11/23/18 06:00 11/23/18 06:00 Intake and Output: 11/23/18 11/23/18 06:59 18:59 Intake Total 300 Balance 300 - Medications Medications: Current Medications Aspirin (Ecotrin) 81 mg PO DAILY [facility] Last Admin: 11/23/18 10:06 Dose: 81 mg Atorvastatin Calcium (Lipitor) 10 mg PO DIN [facility] Dextrose (Dextrose 50% Inj) 0 ml IV STAT PRN; Protocol PRN Reason: Hypoglycemia Protocol Sodium Chloride (Sodium Chloride 0.9%) 1,000 mls @ 75 mls/hr IV .[id number] [facility] Last Admin: 11/23/18 03:55 Dose: 75 mls/hr Dextrose (Dextrose 5% In Water 1000 Ml) 1,000 mls @ 0 mls/hr IV .Q0M PRN; Protocol PRN Reason: Hypoglycemia Protocol Insulin Human Regular (Humulin R) 0 units SC [facility]; Protocol Last Admin: 11/23/18 12:44 Dose: Not Given Levothyroxine Sodium (Synthroid) 50 mcg PO 0600 [facility] Losartan Potassium (Cozaar) 100 mg PO DAILY [facility] Last Admin: 11/23/18 10:06 Dose: 100 mg Magnesium Oxide (Mag-Ox) 400 mg PO DAILY [facility] Last Admin: 11/23/18 10:06 Dose: 400 mg Non-Formulary Medication (Potassium Gluconate [Potassium]) 600 mg PO DAILY [facility] Last Admin: 11/23/18 10:07 Dose: Not Given Pantoprazole Sodium (Protonix Ec Tab) 40 mg PO 0600 [facility] Last Admin: 11/23/18 05:23 Dose: 40 mg - Labs Labs: 11/23/18 02:12 11/23/18 02:12 PT 12.0 SECONDS (9.4-12.5) 11/23/18 02:12 INR 1.08 11/23/18 02:12 APTT 28.0 Seconds (26.9-38.3) 11/23/18 02:12 - Constitutional Appears: Non-toxic, No Acute Distress - Head Exam Head Exam: ATRAUMATIC, NORMOCEPHALIC - Eye Exam Eye Exam: EOMI, PERRL - ENT Exam ENT Exam: Mucous Membranes Moist - Neck Exam Neck Exam: Full ROM. absent: Lymphadenopathy - Respiratory Exam Respiratory Exam: Clear to Ausculation Bilateral, NORMAL BREATHING PATTERN. absent: Accessory Muscle Use, Rales, Rhonchi, Wheezes, Respiratory Distress - Cardiovascular Exam Cardiovascular Exam: REGULAR RHYTHM, RRR, +S1, +S2. absent: Gallop, Rubs, Murmur - GI/Abdominal Exam GI & Abdominal Exam: Soft, Normal Bowel Sounds. absent: Guarding, Tenderness - Extremities Exam Extremities Exam: Full ROM. absent: Pedal Edema - Back Exam Back Exam: NORMAL INSPECTION - Neurological Exam Neurological Exam: Alert, Awake, Oriented x3 Neuro motor strength exam: Left Upper Extremity: 5, Right Upper Extremity: 5, Left Lower Extremity: 5, Right Lower Extremity: 5 - Psychiatric Exam Psychiatric exam: Normal Affect, Normal Mood - Skin Skin Exam: Dry, Intact, Warm Assessment and Plan - Assessment and Plan (Free Text) Assessment: 63 yo F with PMH of HTN, DM2, HLD, and insomnia presented to ED following a sy ncopal episode. She is admitted for syncopal w/u. Plan: Syncopal Episode Suspect most likely 2/2 polypharmacy as patient takes ambien nightly and anti- hypertensives Case discussed with Dr. Ledesma who will review EEG but has low suspicion for neurological cause for syncope Similar syncope w/u completed during last admission, including TTE and stress test which were both negative Orthostatic VS negative Will recommend patient d/c ambien and get outpatient sleep study Will monitor overnight off ambien, recommend melatonin instead HTN Continue home meds with holding parameters DM2 ISS while admitted, hold home antihyperglycemics HLD Continue home lipitor DVT/GI PPX: SCD/GI ppx not indicated Full Code HHD Monitor on telemetry Patient seen, examined with, and plan discussed with my attending Dr. Brittany Orantes D.O. Resident PGY-1 Pager: [phone]
--- NOTE | 2018-11-23 13:45 | CON ---
DATE: 11/23/2018 REASON FOR CONSULTATION: Syncope, cardiac evaluation. BRIEF CLINICAL HISTORY: This is a 63-year-old female with past medical history of hypertension, diabetes, hyperlipidemia, came to the emergency room after having syncopal episode. The patient said that she was in the kitchen suddenly developed the cramp in both lower extremities and then she called her , but later on, her called the ambulance and brought her. Denies any chest pain. Denies any shortness of breath. Denies any palpitation. PAST MEDICAL HISTORY: Significant for syncopal episode 6 months ago, history of hypertension, hyperlipidemia, hypertension, and diabetes, type 2. The patient was here and seen last time by Dr. Levy, at that time, the patient did not have any chest pain, but had a similar syncopal episode while going to the bathroom. This time, the patient had syncopal episode while sitting in the kitchen due to the spasm. Denies any chest pain. Denies any shortness of breath. Denies any palpitation. PAST SURGICAL HISTORY: Significant for right shoulder rotator cuff surgery, cholecystectomy, ovarian cyst, removal of left breast cyst in the past. FAMILY HISTORY: Significant father and mother having hypertension and hyperlipidemia. SOCIAL HISTORY: Denies any smoking. Denies any history of alcohol abuse. 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 ALLERGIES: PENICILLIN. CURRENT MEDICATIONS: The patient is at home taking amlodipine 5 mg daily, Ambien 10 mg daily, [place] Thyroid 1 tablet daily, Januvia 100 mg daily, Pravachol 40 mg daily, Glucophage 1 g twice a day, magnesium, losartan, Victoza, and vitamin D as well as baby aspirin and Coreg 12.5 mg twice a day. PREVIOUS CARDIAC WORKUP: As follows: The patient had a stress test dated 08/16/2018, shows essentially normal myocardial perfusion study, fixed anteroseptal and apical defect most likely secondary to breast attenuation, essentially normal perfusion study. The patient had an echocardiography done on 07/25/2018 that revealed ejection fraction 65%, trace aortic regurgitation, mild mitral regurgitation, trace tricuspid regurgitation. RV systolic pressure 15 mmHg. REVIEW OF SYSTEMS: As per HPI. PHYSICAL EXAMINATION GENERAL: Height of the patient 5 feet 3 inches. Weight of the patient 32.1 kg/m2. VITAL SIGNS: Temperature afebrile, heart rate 75, blood pressure 119/76. HEENT: PERRLA. Extraocular muscles intact. NECK: Supple. No carotid bruit or thyromegaly. CHEST: Clear to auscultation. HEART: S1 and S2, regular. ABDOMEN: Soft. EXTREMITIES: Clubbing, cyanosis negative. LABORATORY DATA: EKG shows sinus darling, heart rate 52, first-degree AV block, otherwise within the normal limits. Blood workup as follows: WBC 8.2, hemoglobin 11.6, hematocrit 34.5, and platelet count 292. Chemistry shows sodium 135, potassium 3.4, chloride 99, carbon dioxide 22, anion gap of 12, BUN 22, creatinine 0.5, troponin 0.01, TSH 5.07. IMPRESSION: Recurrent syncope, rule out vasovagal; rule out orthostatic hypotension. RECOMMENDATIONS: Recently, the patient had cardiac workup including a stress test and echo. No significant structural heart disease. No significant ischemia. The patient has also bilateral carotid duplex done on the last admission that revealed B/l 20-39% ICA stenosis. We will check orthostatic hypotension, lipid profile, TSH, and if no evidence of any arrhythmia noted, we will consider loop recorder on Monday. We will keep n.p.o. after Monday for loop recorder implantation. We will follow with you. Thank you Dr. Soto for providing us the opportunity in taking care of the patient, Reed [place]. Omar Acuña MD [facility]
--- NOTE | 2018-11-23 14:05 | PCM.EEG ---
Electroencephalogram Report - Electroencephalogram Report Procedure Date: 11/23/18 Medication: ASa, Lipitor, Insulin Interpretation: Technical Information: This was a 16 -channel EEG, 1-channel EKG routine EEG performed using an Storone machine. Electrodes were applied using the 10/20 international placement system. Start 10;50 End; 11;44 Total 54 min Clinical Information: syncope During resting wakefulness there was a symmetric posterior dominant rhythm at 8.5-9.5 Hz, 30-50 uV, which was reactive to eye opening and closing. Drowsiness (11;11) was associated with fragmentation of the posterior dominant rhythm and with slow roving eye movements. Light sleep (11;16) was recorded and was characterized by central vertex waves, sleep spindles, and bilateral theta slowing. Hyperventilation was performed no changes in the record. Photic stimulation was performed and there were no changes on the record. Focal abnormality; none There was non specific left temporal slowing seen during drowsiness normal for age. ECG was associated with a normal sinus rhythm. Impression: This is a normal awake drowsy and sleep electroencephalogram.
--- NOTE | 2018-11-23 15:18 | CP.PCM.DIS ---
<Srinivasa Orantes - Last Filed: 11/23/18 15:08> Provider - Provider Date of Admission: 11/23/18 03:15 Attending physician: Ana Luisa Soto MD Primary care physician: Margarette Mccall MD Consults: 11/23/18 03:50 Physician Consult Routine Comment: Consulting Provider: Omar Yusuf Consulting Physician: Omar Yusuf Reason for Consult: syncope 11/23/18 05:02 Diabetic Education Referral Routine Comment: Physician Instructions: Reason For Exam: HX diabetes 11/23/18 07:13 Consult [Physician Consult] Routine Comment: Consulting Provider: Eriberto Ledesma Consulting Physician: Eriberto Ledesma Reason for Consult: syncope Time Spent in preparation of Discharge (in minutes): 40 Diagnosis - Discharge Diagnosis (1) Syncope Status: Resolved Hospital Course - Lab Results Lab Results: Most Recent Lab Values WBC 8.2 10^3/uL (4.5-11.0) D 11/23/18 02:12 RBC 4.04 10^6/uL (3.5-6.1) 11/23/18 02:12 Hgb 11.6 g/dL (12.0-16.0) L 11/23/18 02:12 Hct 34.5 % (36.0-48.0) L 11/23/18 02:12 MCV 85.4 fl (80.0-105.0) 11/23/18 02:12 MCH 28.7 pg (25.0-35.0) 11/23/18 02:12 MCHC 33.6 g/dl (31.0-37.0) 11/23/18 02:12 RDW 13.0 % (11.5-14.5) 11/23/18 02:12 Plt Count 292 10^3/uL (120.0-450.0) 11/23/18 02:12 MPV 9.3 fl (7.0-11.0) 11/23/18 02:12 Neut % (Auto) 54.1 % (50.0-68.0) 11/23/18 02:12 Lymph % (Auto) 33.5 % (22.0-35.0) 11/23/18 02:12 [place] % (Auto) 8.6 % (1.0-6.0) H 11/23/18 02:12 Eos % (Auto) 3.6 % (1.5-5.0) 11/23/18 02:12 Baso % (Auto) 0.2 % (0.0-3.0) 11/23/18 02:12 Lymph # (Auto) 2.7 (1.2-3.4) 11/23/18 02:12 [place] # (Auto) 0.7 (0.1-0.6) H 11/23/18 02:12 Eos # (Auto) 0.3 (0.0-0.7) 11/23/18 02:12 Baso # (Auto) 0.02 K/mm3 (0.0-2.0) 11/23/18 02:12 Absolute Neuts (auto) 4.42 (1.4-6.5) 11/23/18 02:12 PT 12.0 SECONDS (9.4-12.5) 11/23/18 02:12 INR 1.08 11/23/18 02:12 APTT 28.0 Seconds (26.9-38.3) 11/23/18 02:12 Sodium 136 mmol/L (132-148) 11/23/18 02:12 Potassium 3.4 mmol/L (3.6-5.0) L 11/23/18 02:12 Chloride 99 mmol/L (98-107) 11/23/18 02:12 Carbon Dioxide 28 mmol/L (21-33) 11/23/18 02:12 Anion Gap 12 (10-20) 11/23/18 02:12 BUN 22 mg/dL (7-21) H 11/23/18 02:12 Creatinine 0.5 mg/dl (0.7-1.2) L 11/23/18 02:12 Est GFR ( Amer) > 60 11/23/18 02:12 Est GFR (Non-Af Amer) > 60 11/23/18 02:12 POC Glucose (mg/dL) 110 mg/dL (65-110) 11/23/18 11:46 Random Glucose 123 mg/dL (70-110) H 11/23/18 02:12 Calcium 9.7 mg/dL (8.4-10.5) 11/23/18 02:12 Magnesium 1.5 mg/dL (1.7-2.2) L 11/23/18 02:12 Total Bilirubin 0.2 mg/dL (0.2-1.3) 11/23/18 02:12 AST 20 U/L (14-36) 11/23/18 02:12 ALT 12 U/L (7-56) 11/23/18 02:12 Alkaline Phosphatase 43 U/L (38-126) 11/23/18 02:12 Total Creatine Kinase 72 U/L (35-230) 11/23/18 02:12 Troponin I < 0.01 ng/mL 11/23/18 02:12 Total Protein 6.7 g/dL (5.8-8.3) 11/23/18 02:12 Albumin 3.9 g/dL (3.0-4.8) 11/23/18 02:12 Globulin 2.8 gm/dL 11/23/18 02:12 Albumin/Globulin Ratio 1.4 (1.1-1.8) 11/23/18 02:12 Vitamin B12 684 pg/mL (239-931) 11/23/18 02:12 Free T4 0.93 ng/dL (0.78-2.19) 11/23/18 02:30 TSH 3rd Generation 5.07 mIU/mL (0.46-4.68) H 11/23/18 02:12 - Hospital Course Hospital Course: Srinivasa Orantes DO, PGY-1 Hospitalist Discharge Summary for Dr. Soto Prior to admission: Reed is a pleasant 63 year old female with PMH of HTN, DM2, and HLD who presented to [facility] ED with her following a syncopal episode. She reports she woke up from bed to go to the bathroom. She was having severe b/l LE cramps while walking, prompting her to call her when she sat down. Patient states her then found her down. She admits to diaphoresis and palpitations prior to the event. She had no additional complaints on admission and denied fever/chills, CP, SOB, abd pain/nausea/vomiting, or new urinary complaints. She had been admitted for a similar episode once prior and w/u at that time included unremarkable carotid artery US, head CT, and TTE. She also recently had a stress test completed which was negative. Hospitalization course: During this admission, patient had additional w/u which included EEG. EEG was read as unremarkable. Patient was evaluated by and case was discussed with neurology. Suspect patient's syncopal episode was most likely 2/2 polypharmacy from multiple BP meds and ambien vs. arrythmia (given patient had palpitations prior to episode). Arrangements were made for patient to see Dr. Acuña in his office on Monday morning. Dr. Acuña will plan on outpatient cardiac monitoring. Discharge plan was discussed with patient and all consultants in detail. All questions were answered. Patient seen, examined, and discharge plan discussed with my attending Dr. Brittany Orantes D.O. IM Resident PGY-1 Discharge Exam - Head Exam Head Exam: ATRAUMATIC, NORMAL INSPECTION, NORMOCEPHALIC - Eye Exam Eye Exam: EOMI, PERRL - ENT Exam ENT Exam: Mucous Membranes Moist - Neck Exam Neck exam: Full Rom, Normal Inspection - Respiratory Exam Respiratory Exam: Clear to PA & Lateral, NORMAL BREATHING PATTERN, UNREMARKABLE. absent: Accessory Muscle Use, Rales, Rhonchi, Wheezes, Respiratory Distress - Cardiovascular Exam Cardiovascular Exam: REGULAR RHYTHM, RRR, +S1, +S2. absent: Diastolic murmur, Gallop, Rubs, Systolic Murmur - GI/Abdominal Exam GI & Abdominal Exam: Normal Bowel Sounds, Soft, Unremarkable. absent: Tenderness - Extremities Exam Extremities exam: full ROM, normal inspection - Back Exam Back exam: NORMAL INSPECTION - Neurological Exam Neurological exam: Alert, CN II-XII Intact, Normal Gait, Oriented x3 Additional comments: muscle strength 5/5 throughout - Psychiatric Exam Psychiatric exam: Normal Affect, Normal Mood - Skin Skin Exam: Dry, Intact, Warm Discharge Plan - Discharge Medications Prescriptions: Melatonin 10 mg PO HS #30 tablet - Follow Up Plan Condition: GOOD Disposition: HOME/ ROUTINE Instructions: Syncope (DC), Syncope (GEN) Additional Instructions: Please follow up with your primary medical doctor within 3-5 days of discharge. Please inform him of your recent hospitalization. Please stop taking ambien at night, you may take melatonin over the counter instead. Please ask your primary medical doctor for a referral for a sleep study to help address your difficulty sleeping. The neurologist you saw here recommended this. Please see Dr. Acuña, the de icer, on Monday. We have made an appointment for you. Please contact his office if you need to change this appointment. His office contact information has been included in your paperwork. Dr. Acuña will arrange for you to wear a heart monitor to make sure you are not having an abnormal rhythm. If any of your symptoms return or worsen, please return to nearest emergency department. Referrals: Omar Acuña MD [Staff Provider] - Margarette Mccall MD [Primary Care Provider] - <Ana Luisa Soto - Last Filed: 11/24/18 13:19> Provider - Provider Date of Admission: 11/23/18 03:15 Attending physician: Ana Luisa Soto MD Primary care physician: Margarette Mccall MD Consults: 11/23/18 03:50 Physician Consult Routine Comment: Consulting Provider: Omar Yusuf Consulting Physician: Omar Yusuf Reason for Consult: syncope 11/23/18 05:02 Diabetic Education Referral Routine Comment: Physician Instructions: Reason For Exam: HX diabetes 11/23/18 07:13 Consult [Physician Consult] Routine Comment: Consulting Provider: Eriberto Ledesma Consulting Physician: Eriberto Ledesma Reason for Consult: syncope Hospital Course - Lab Results Lab Results: Most Recent Lab Values WBC 8.2 10^3/uL (4.5-11.0) D 11/23/18 02:12 RBC 4.04 10^6/uL (3.5-6.1) 11/23/18 02:12 Hgb 11.6 g/dL (12.0-16.0) L 11/23/18 02:12 Hct 34.5 % (36.0-48.0) L 11/23/18 02:12 MCV 85.4 fl (80.0-105.0) 11/23/18 02:12 MCH 28.7 pg (25.0-35.0) 11/23/18 02:12 MCHC 33.6 g/dl (31.0-37.0) 11/23/18 02:12 RDW 13.0 % (11.5-14.5) 11/23/18 02:12 Plt Count 292 10^3/uL (120.0-450.0) 11/23/18 02:12 MPV 9.3 fl (7.0-11.0) 11/23/18 02:12 Neut % (Auto) 54.1 % (50.0-68.0) 11/23/18 02:12 Lymph % (Auto) 33.5 % (22.0-35.0) 11/23/18 02:12 [place] % (Auto) 8.6 % (1.0-6.0) H 11/23/18 02:12 Eos % (Auto) 3.6 % (1.5-5.0) 11/23/18 02:12 Baso % (Auto) 0.2 % (0.0-3.0) 11/23/18 02:12 Lymph # (Auto) 2.7 (1.2-3.4) 11/23/18 02:12 [place] # (Auto) 0.7 (0.1-0.6) H 11/23/18 02:12 Eos # (Auto) 0.3 (0.0-0.7) 11/23/18 02:12 Baso # (Auto) 0.02 K/mm3 (0.0-2.0) 11/23/18 02:12 Absolute Neuts (auto) 4.42 (1.4-6.5) 11/23/18 02:12 PT 12.0 SECONDS (9.4-12.5) 11/23/18 02:12 INR 1.08 11/23/18 02:12 APTT 28.0 Seconds (26.9-38.3) 11/23/18 02:12 Sodium 136 mmol/L (132-148) 11/23/18 02:12 Potassium 3.4 mmol/L (3.6-5.0) L 11/23/18 02:12 Chloride 99 mmol/L (98-107) 11/23/18 02:12 Carbon Dioxide 28 mmol/L (21-33) 11/23/18 02:12 Anion Gap 12 (10-20) 11/23/18 02:12 BUN 22 mg/dL (7-21) H 11/23/18 02:12 Creatinine 0.5 mg/dl (0.7-1.2) L 11/23/18 02:12 Est GFR ( Amer) > 60 11/23/18 02:12 Est GFR (Non-Af Amer) > 60 11/23/18 02:12 POC Glucose (mg/dL) 106 mg/dL (65-110) 11/23/18 16:19 Random Glucose 123 mg/dL (70-110) H 11/23/18 02:12 Calcium 9.7 mg/dL (8.4-10.5) 11/23/18 02:12 Magnesium 1.5 mg/dL (1.7-2.2) L 11/23/18 02:12 Total Bilirubin 0.2 mg/dL (0.2-1.3) 11/23/18 02:12 AST 20 U/L (14-36) 11/23/18 02:12 ALT 12 U/L (7-56) 11/23/18 02:12 Alkaline Phosphatase 43 U/L (38-126) 11/23/18 02:12 Total Creatine Kinase 72 U/L (35-230) 11/23/18 02:12 Troponin I < 0.01 ng/mL 11/23/18 02:12 Total Protein 6.7 g/dL (5.8-8.3) 11/23/18 02:12 Albumin 3.9 g/dL (3.0-4.8) 11/23/18 02:12 Globulin 2.8 gm/dL 11/23/18 02:12 Albumin/Globulin Ratio 1.4 (1.1-1.8) 11/23/18 02:12 Vitamin B12 684 pg/mL (239-931) 11/23/18 02:12 Free T4 0.93 ng/dL (0.78-2.19) 11/23/18 02:30 TSH 3rd Generation 5.07 mIU/mL (0.46-4.68) H 11/23/18 02:12 Attending/Attestation - Attestation I have personally seen and examined this patient.: Yes I have fully participated in the care of the patient.: Yes I have reviewed all pertinent clinical information, including history, physical exam and plan: Yes Notes (Text): 11/24/18 13:00 Attending note; Patient seen and examined with resident. Patient is alert and awake. Currently denies any dizziness. Denies any chest pain, palpitation. Denies any nausea, vomiting. Denies any diarrhea, urinary symptoms Denies any fevers, chills. Patient is a 63 year old female with PMH of HTN, DM2, and HLD who presented to [facility] ED with her following a syncopal episode. 1. Syncopal episodes; possible vasovagal drug effect suspected. No episodes of hypoglycemia or hypotension noted. no significant orthostatic blood pressure changes noted. 2. Diabetes; monitor fingerstick closely. 3. hypertension; patient is taking Norvasc and Cozaar at home. Advised to check blood pressure at home . 4. Recent echocardiogram and stress test was negative. 5. Insomnia; patient has been taking Ambien for a long period of time. Advised to taper and discontinue. Neurology evaluation appreciated EEG is normal. Physical therapy evaluation appreciated. Patient will follow up with PMD Dr. Mccall. Follow-up with cardiology and neurology as outpatient. The patient is asymptomatic. Will be discharged home today. 11/24/18 13:18
[2018-11-23 15:33] VITALS: PULSE 80
--- NOTE | 2018-11-23 18:38 | CARD ---
APPROVED REPORT Date of service: 11/23/2018 EKG Measurement Heart [id number] <Conclusion> Sinus rhythm with 1st degree AV block Otherwise normal ECG
[2018-11-24] MEDS ORDERED: Levothyroxine 50 MCG TAB PO SCH (06:00)
--- NOTE | 2018-11-26 11:05 | CON ---
DATE: 11/23/2018 NEUROLOGY CONSULT CALLED BY: Ana Luisa Soto MD HISTORY OF PRESENT ILLNESS: This is a 53-year-old woman who appears for a spell second in the last one month where she woke up to go to the bathroom and had cramps in her bilateral lower extremities. She sat down and then her witnessed that she lost consciousness with eyes trembling and hand trembling and unresponsiveness for several minutes. The patient did not have any recollection of the event. Of note, this has happened on 07/30/2018, similar workup, echo was normal. Carotids were normal. The patient was brought to [facility]. REVIEW OF SYSTEMS: Today is not significant for any complaints. No headaches, no nausea, no vomiting, no diarrhea. No other issues. PAST MEDICAL HISTORY: Hypertension, diabetes, and hyperlipidemia. PAST SURGICAL HISTORY: Right shoulder cuff repair, cholecystectomy, left ovarian cyst removal, right breast cyst removal. FAMILY HISTORY: Mother and father both suffer from high blood pressure and diabetes. SOCIAL HISTORY: The patient lives with her , has two adopted children. No tobacco, no alcohol, no drug use. Of note, she has been taking Ambien since the age of 49. MEDICATIONS: Losartan 100 mg everyday, Norvasc 5 mg everyday, metformin 1000 b.i.d., Januvia 100 daily, pravastatin. PHYSICAL EXAMINATION: NEUROLOGIC: She is alert and oriented x3. Cranial nerves II through XII are normal. Pupils are equal, round, reactive to light. EOMI. MMS 30/30. Motor tone and strength 5/5. Sensory intact to fine touch, pin, position. Cerebellar; metscr-mi-tebb shows no dysmetria. Gait is normal. She can walk tandem. Reflexes are +2, upper and lower bilaterally. Toes are downgoing. There is no clonus. LABORATORY DATA: EEG is normal. CAT scan was normal as well. IMPRESSION: This is a 53-year-old woman who most likely has vasovagal syncope/cardiogenic syncope. She does give a report of extreme diaphoresis and palpitations before her event. PLAN: 1. Recommend a [employer]ARD[employer] recorder. Spoke to meatcutter about this and he agrees on Monday morning. 2. The patient will be discharged home with aspirin and fluids. Eriberto Ledesma MD [facility] # [id number] [facility]
== END 2018-11-23 18:01 | disposition home or self-care (01) ==
LOC: ED 01:27 → ERH 03:15 → 3RNO 04:03
PROVIDERS: ADMIT Internal Medicine; ATTEND Internal Medicine
DX: R55 Syncope and collapse (principal); T46.5X5A Adverse effect of other antihypertensive drugs, initial encounter; T42.6X5A Adverse effect of other antiepileptic and sedative-hypnotic drugs, initial encounter; T42.4X5A Adverse effect of benzodiazepines, initial encounter; I10 Essential (primary) hypertension; E11.9 Type 2 diabetes mellitus without complications; E78.00 Pure hypercholesterolemia, unspecified; E78.5 Hyperlipidemia, unspecified; G47.00 Insomnia, unspecified; Z82.49 Family history of ischemic heart disease and other diseases of the circulatory system; Z83.3 Family history of diabetes mellitus; Z79.84 Long term (current) use of oral hypoglycemic drugs
CPT/HCPCS: 36415; 71045; 80053; 82550; 82607; 82948; 83735; 84439; 84443; 84484; 85025; 85610; 85730; 93005; 97116; 97161; 99285; G0378; G8978; G8979; G8980; J3475; J7030

== ENCOUNTER 2018-12-10 06:18 | Day surgery (SDC) | payer MEDICAID ==
--- NOTE | 2018-12-07 23:38 | HP ---
DATE OF EXAM: 12/10/2018 REASON FOR ADMISSION: Implantation of loop recorder and history of syncope. BRIEF CLINICAL HISTORY: This is a 63-year-old female with a past medical history significant for hypertension, diabetes, hyperlipidemia, came to the emergency room on 11/23/2018 having syncopal episode. The patient states that she was in kitchen, suddenly she developed cramps in both lower extremity and then she called her , but later on her called the ambulance and brought to the emergency room. Denies any chest pain. Denies any shortness of breath. Denies any palpitation. PAST MEDICAL HISTORY: Significant for syncopal episode 6 months ago with two episodes, one happened on 11/22/2018 and one 6 months ago. History of hypertension, hyperlipidemia, diabetes type 2, and history of similar syncopal episode 6 months ago while going to the bathroom. PAST SURGICAL HISTORY: Significant for right shoulder rotator cuff surgery, cholecystectomy, ovarian cyst, removal of cyst from the left breast. FAMILY HISTORY: Significant for father and mother hypertension and hyperlipidemia. SOCIAL HISTORY: Denies smoking. Denies any history of alcohol abuse. ALLERGIES: PENICILLIN. CURRENT MEDICATIONS: The patient is at home taking amlodipine 5 mg daily, Ambien 10 mg daily, [place] Thyroid 1 tablet daily, Januvia 100 daily, Pravachol 40 mg daily, Glucophage one tablet twice a day, magnesium, as well as losartan 100 mg daily, Victoza 1.2 subcutaneous daily, and vitamin D3, Coreg 12.5 mg twice a day, and baby aspirin. PREVIOUS CARDIAC WORKUP: As follows: The patient had a stress test dated 08/16/2018, it was essentially normal myocardial perfusion study, fixed anteroseptal and apical defect, most likely secondary to breast attenuation, essentially normal myocardial perfusion study. The patient had an echocardiography done on 07/25/2018; that revealed ejection fraction 65%, trace aortic regurgitation, mild mitral regurgitation, trace tricuspid regurgitation, and RV systolic pressure 15. REVIEW OF SYSTEMS: As per HPI. PHYSICAL EXAMINATION: As follows; GENERAL: Height of the patient 5 feet 3 inches, weight of the patient 180 pounds, and body mass index 32.1 kg/m2. VITAL SIGNS: Temperature afebrile, heart rate 80, and blood pressure 119/73. HEENT: PERRLA. Extraocular muscles intact. NECK: Supple. No carotid bruit or thyromegaly. CHEST: Clear to auscultation. HEART: S1 and S2 regular. ABDOMEN: Soft. EXTREMITIES: Clubbing, cyanosis negative. LABORATORY DATA: Blood workup; WBC as of 11/23/2018; WBC 8.2, hemoglobin 11.6, hematocrit 34.5, and platelet count 292. Coagulation profile as of 11/23/2018; PT 12, INR 1.06, and PTT 28. Chemistry shows sodium 136, potassium 3.4, chloride 99, carbon dioxide 28, anion gap of 12, BUN 22, creatinine 0.8. EKG on admission on 11/23/2018; shows normal sinus first-degree A-V block, otherwise normal EKG. IMPRESSION: A 63-year-old female with past medical history significant for diabetes, hypertension, hyperlipidemia, admitted 2 episodes of syncopal episode, first in 4 to 5 months ago in 07/2018 with essential non-invasive cardiac workup which was negative. Now, the patient admitted again with near syncopal. Suggest loop recorder implantation, discussed with neurologist. If they agreed, we will proceed for implantation of loop recorder. Further recommendation depend upon hospital course. We will follow with you. Thank you Dr. Soto for providing us the opportunity in taking care of the patient, Reed Washington. Omar Acuña MD
[2018-12-10] MEDS ORDERED: Lidocaine PF 2% (5 ml) Inj (For Cardiac Arrhy) ONE (07:25)
--- NOTE | 2018-12-10 09:11 | CPOSTOP ---
DATE: 12/10/2018 CARDIOVASCULAR LAB POST PROCEDURE NOTE DICTATING PHYSICIAN: Omar Acuña MD SENIOR IT AUDITOR: Jammie Ramirez, vehicle modification technician. TYPE OF ANESTHESIA: Local anesthesia. PRE-PROCEDURE DIAGNOSIS: Recurrent syncope. PROCEDURE PERFORMED: Implantation of loop recorder link from [employer]. FINDINGS: Recurrent syncope. FINAL DIAGNOSIS: Recurrent syncope. POST PROCEDURE CONDITION: Stable. VASCULAR ACCESS SITE: Left side of the chest. No arteria venous access. CLOSURE DEVICE: Dermabond. RADIATION DOSE: None. FLUORO TIME: None. Omar Acuña MD
[2018-12-10 10:24] VITALS: BP 120/68; PULSE 70; RESP 20; TEMP 97.9; O2SAT 97
--- NOTE | 2018-12-10 12:33 | CARDCATH ---
PROCEDURE DATE: 12/10/2018 CARDIAC VASCULAR LAB PROCEDURE PROCEDURE PERFORMED: Implantation of loop recorder ( Linq) INDICATION FOR THE PROCEDURE: Recurrent syncope, etiology not clear, rule out arrhythmia. IMITATION MARBLE MECHANIC: Omar Acuña MD CUST[employer]S AND BORDER PROTECTION OFFICER: Dr. Soham Ramirez. SCHEDULING: Elective. BRIEF CLINICAL HISTORY: This is a 63-year-old female with past medical history significant for hypertension, diabetes, hyperlipidemia. Came to the emergency room on 11/23/2018 having syncopal episode. The patient had similar episode 6 months ago. The patient said that she was walking to the kitchen and suddenly, she developed cramps in both legs, lower extremities and then called the ambulance. Later on, called the ambulance. The patient had a syncopal episode. The patient has no recollection. The patient was scheduled for loop recorder implantation but got delayed because of the authorization. Today, the patient brought for implantation of loop recorder. PROCEDURE TECHNIQUE: After having risks, benefits, and alternatives explained to the patient, the patient was put in supine position in labels molder table. At fourth intercostal space in the left side, 1.5 cm away from the midline, 8 to 10 mL of lidocaine was given. Before that, left side of the chest was prepped and draped in sterile standard fashion. After this, with the loop recorder BP knife, a small incision was made and pocket was created and the loop recorder (LINQ) was implanted by the injector. Then, puncture site was sutured with 4-0 Vicryl. Two stitches were done and wound was closed with Dermabond. The patient tolerated the procedure well. In summary following procedures were done. Implantation of loop recorder (LINQ) from [employer]. Arrangement has been made for followup and explained the patient, education was given by medical repLesly, from [employer] for followup. Also, arrangement has been made for the transtelephone to Dr. Barber Curtis's office. CC: Dr Cal Pfeiffer MD Omar Acuña MD [facility]
== END 2018-12-10 10:09 | disposition home or self-care (01) ==
LOC: CATH 06:18
PROVIDERS: ATTEND Internal Medicine Cardiovascular Disease
DX: R55 Syncope and collapse (principal); I08.3 Combined rheumatic disorders of mitral, aortic and tricuspid valves; E11.9 Type 2 diabetes mellitus without complications; I10 Essential (primary) hypertension; E78.5 Hyperlipidemia, unspecified; Z79.84 Long term (current) use of oral hypoglycemic drugs
CPT/HCPCS: 33285; 82948; C1764; J1644